=== PATIENT | female | born 1945 | race Caucasian/White ===

== ENCOUNTER 2024-03-13 14:16 | Outpatient (AMB) | payer OTHER, MEDICARE, SELFPAY ==
--- NOTE | 2024-03-13 14:17 | MHC.OFFVIS ---
Vital Signs 03/13/24 14:21 Height 5 ft 1 in Weight 95 lb BMI 17.9 BP 118/68 Blood Pressure Location Lt brachial Position Sitting Pulse 44 L Pulse Source Pulse Oximeter Pulse Oximetry (%) 100 Oxygen Delivery Method Room Air Intake Visit Reasons: Arthralgia Intake Note: Patient presents today for follow up on arthralgia. She was last seen on 07/31/[address] Mckinney at the [facility]. Allergies amoxicillin Allergy (Mild, Verified 03/13/24 10:07) Hives sulfamethoxazole [From Bactrim] Adverse Reaction (Intermediate, Verified 03/13/24 10:07) stomach pain trimethoprim [From Bactrim] Adverse Reaction (Intermediate, Verified 03/13/24 10:07) stomach pain nifedipine [From Procardia] Adverse Reaction (Mild, Verified 03/13/24 10:07) Headache lactose intolerant Adverse Reaction (Mild, Uncoded 03/13/24 10:07) Stomach Upset tegaderm tape Adverse Reaction (Mild, Uncoded 03/13/24 10:07) Rash HPI HPI Arthralgia: Details: Hx of esophageal dilitation by Dr. Aquino. At this time she does not have dysphagia. nefidipine caused ankle swelling. Raynaud's syndrome affecting hands and feet. Hands are cold. She has purple fingers when exposed to cold. Warming helps. Wears gloves in the cold. Denies spreading of skin tightening. Denies fevers, dyspnea, new rash, urinary symptoms. FORMERLY [facility], [facility] Medical History (Updated 03/17/24 @ 12:26 by Christian Mckinney MD) Varicose veins of both lower extremities Aortic regurgitation Aortic dilatation Diastolic dysfunction Right ventricular dilation Myasthenia gravis COPD (chronic obstructive pulmonary disease) Ocular myasthenia Lactose intolerance Osteopenia Veronica's disease Subclavian artery thrombosis DVT (deep venous thrombosis) History of colonic diverticulitis Primary biliary cirrhosis GERD (gastroesophageal reflux disease) Sclerodactyly Raynaud's phenomenon Inflammatory bowel disease Hypertension Surgical History (Updated 03/13/24 @ 11:17 by Eda Lares CMA) History of cataract surgery H/O total colectomy H/O total hysterectomy H/O basal cell carcinoma excision Review of Systems Const All systems reviewed & are unremarkable except as noted in HPI and below Physical Exam Vital Signs: Last Vital Signs Pulse 44 L 03/13/24 14:21 BP 118/68 03/13/24 14:21 Pulse Ox 100 03/13/24 14:21 Oxygen Delivery Method Room Air 03/13/24 14:21 BMI result Body Mass Index 17.9 Const Other: General: Comfortable CVS: RRR Respiratory: clear to auscultation bilaterally. Good respiratory effort Skin: Sclerodactyly present. No discoloration of fingertips. No digital ulcerations. MSK: [place]ber[place] nodes present. No tenderness of any joints. Good range of motion of upper extremities and lower extremities. Assessment & Plan Assessment & Plan (1) Systemic sclerosis with limited cutaneous involvement: Comment: Positive anticentromere antibody, URBAN, sclerodactyly, Raynaud's phenomena, possible history of strictures requiring dilatation from GI (unclear if esophageal dysmotility played a role in the past). Raynaud's syndrome is uncontrolled. Cutaneous disease is controlled without DMARD therapy. She was previously on a magnesium supplement. I will order magnesium level to determine if she remains deficient. Code(s): M34.9 - Systemic sclerosis, unspecified Category: Medical Plan: She will continue diltiazem 180 mg daily ER (previously on 360 mg daily ER, which was discontinued when she was on nifedipine). We discussed adding on sildenafil to better control Raynaud's syndrome as she did not tolerate nifedipine due to side effect of ankle edema. I will not start amlodipine for this reason. Sildenafil is indicated. If she gets control of Raynaud's syndrome on sildenafil, I will taper off diltiazem as it is not treatment of choice for managing Raynaud's syndrome. Baseline labs ordered including magnesium supplement Return to clinic 6 weeks (2) Hypomagnesemia: Code(s): E83.42 - Hypomagnesemia Category: Medical Plan: See above Orders: Orders Magnesium 03/13/24 E83.42 - Hypomagnesemia Complete Blood Count Auto Diff 03/13/24 I73.00 - Raynaud's syndrome without gangrene Creatinine 03/13/24 I73.00 - Raynaud's syndrome without gangrene Alanine Aminotransferase 03/13/24 I73.00 - Raynaud's syndrome without gangrene Aspartate Amino Transferase 03/13/24 I73.00 - Raynaud's syndrome without gangrene Medications: New sildenafil (pulm.hypertension) administer doses at least 4-6 hours apart. PA needed. Dispense this rx. Replace previous rx. 20 mg PO BID 60 tabs 11RF Coding Level of Care Code Est Pt Level 4 (84830) Complex EM visit Add On G2211 Diagnoses Systemic sclerosis with limited cutaneous involvement M34.9 Hypomagnesemia E83.42
[2024-03-13 14:21] VITALS: BP 118/68; PULSE 44; O2SAT 100; BMI 17.9
--- OUTSIDE RECORDS SUMMARY | 2024-03-13 18:04 | XMS_ITS | Patient Health Record ---
Author Organization [facility] Address [address] [place] [address] Care Team Providers Care Assistant Sales Center Manager Name Role Phone BERTRAND THOMAS DO Primary Care Provider Caitlyn Beatty Unavailable [phone] Allergies Allergen (clinical drug ingredient) Drug/Non Drug Allergy documented on EMR Reaction Allergy Type Onset Date Status amoxicillin AMOXICILLIN Itching Drug Allergy Act mark sulfamethoxazole / trimethoprim Bactrim DS Unknown Drug Allergy Active LACTOSE Unknown Drug Allergy Active PROCARDIA Intense Headaches Drug Allergy Active Tegaderm Unknown Allergy Active Reason For Referral No Information Medications Medication SIG (Take, Route, Frequency, Duration) Notes Start Date End Date Status Tobramycin-dexAMETHasone 0.3-0.1 % 1 drop into affected eye Ophthalmic as needed PRN Active Centrum Ultra Womens - Orally Active ProAir RespiClick 108 (90 Base) MCG/ACT 1 puff as needed Inhalation PRN Active Latanoprost 0.005 % 1 drop into affected eye in the evening Ophthalmic 3x a week Active Glucosamine Chond Cmp Advanced - 1 tablet Orally Twice a day Active Vitamin D3 1000 IU 1 ORAL twice daily for -3 10/26/2011 Active Estradiol 0.1 MG/GM 1 tablet Orally 2X A WEEK Active Vitamin B12 500MCG 1 ORAL daily for -3 12/09/2013 Active Omeprazole 20MG 1 ORAL Once a day 10/26/2011 Active dilTIAZem HCl ER Coated Beads 180 MG Oral for 90 Active Flonase Allergy Relief Not-Taking pyRIDostigmine Wynne ER 180 MG 2 tablet Orally Twice a day Active Myrbetriq 25 MG Oral for 30 Days Active Ursodiol 300MG 1 ORAL three times daily for -3 10/26/2011 Active Macrobid 100 MG 1 capsule with food Orally every 12 hrs for 7 days 04/10/2022 Active Levothyroxine Sodium 88 MCG 1 tablet in the morning on an empty stomach Orally Once a day 12/05/2012 Active Aspirin EC 81MG 1 ORAL daily for -3 12/09/2013 Active Losartan Potassium 50 MG 1 tablet Orally Twice a day Active Tylenol Arthritis Pain as needed Active Imodium A-D 2 MG 1 tablet as needed Orally PRN Active Meclizine HCl 25MG 1 ORAL NEEDED FOR VERTIGO for -2 PRN 12/05/2012 Active Social History Tobacco Use: Social History Observation Description Date Details (start date - stop date) Never Smoker NA - NA Tobacco Use/Smoking Question Answer Notes Are you a nonsmoker Alcohol Screen (Audit-C) Question Answer Notes Did you have a drink containing alcohol in the p ast year? No Points 0 Interpretation Negative Sexual History Question Answer Notes Had sex in the past 12 months (vaginal, oral, or anal)? No Section Notes: MARITAL STATUS: single CHILDREN: none OCCUPATION: retired NUTRITION: average diet EXERCISE: occasional walking SEXUAL ACTIVITY: not sexually active CONTRACEPTION: hysterectomy .CE: Smoking: Never a smoker .CE: ALCOHOL: none TEXT MESSAGING WHILE DRIVING: no SUNSCREEN: yes ILLICIT DRUGS: no SEATBEALT: yes Problems Problem Type SNOMED Code ICD Code Onset Dates Problem Status W/U Status Risk Notes Problem Postmenopausal atrophic vaginitis (63478608) Postmenopausal atrophic vaginitis (N95.2) Active confirmed Problem Urinary incontinence (249781822) Unspecified urinary incontinence (R32) Active confirmed Problem Cancer of skin of lower limb, basal cell (244547839) Basal cell carcinoma of skin of right lower limb, including hip (C44.712) Active confirmed Problem Basal cell carcinoma of skin (982445276) Basal cell carcinoma of skin, unspecified (C44.91) Active confirmed Problem Cholelithiasis without obstruction (38712639) Calculus of gallbladder without cholecystitis without obstruction (K80.20) Active confirmed Problem Functional urinary incontinence (235095393) Functional urinary incontinence (R39.81) Active confirmed Problem Hypothyroidism (83134769) Unspecified hypothyroidism (244.9) Active confirmed Major Problem Raynaud's disease (disorder) (023542230) Raynaud's syndrome (443.0) Active confirmed Diag Problem Benign essential hypertension (5830919) Essential hypertension, benign (401.1) Active confirmed Major Problem Esophageal reflux (516601643) Esophageal reflux (530.81) Active confirmed Major Problem Menopausal symptom (16534986) Symptomatic menopausal or female climacteric states (627.2) Active confirmed Major Problem Postmenopausal atrophic vaginitis (57395663) Postmenopausal atrophic vaginitis (627.3) Active confirmed Diag Problem Systemic sclerosis (74344083) Systemic sclerosis (710.1) Active confirmed Diag Problem Gynecological examination normal (782262078389211) Routine gynecological examination (V72.31) Active confirmed Major Problem Screening for malignant neoplasm of colon (358422810) Special screening for malignant neoplasms, colon (V76.51) Active confirmed Major Vital Signs Temperature 97.3 degrees Fahrenheit 07/06/2023 Blood pressure diastolic 58 mm Hg 07/06/2023 Height 60.5 in 07/06/2023 Blood pressure systolic 126 mm Hg 07/06/2023 Weight 100 lbs 07/06/2023 BMI 19.21 kg/m2 07/06/2023 Encounters Encounter Location Date Provider Diagnosis [facility] [address] [place] [address] 07/06/2023 Caitlyn Santana Encounter for gynecological examination (general) (routine) without abnormal findings Z01.419 ; Encounter for screening mammogram for malignant neoplasm of breast Z12.31 ; Unspecified urinary incontinence R32 and Postmenopausal atrophic vaginitis N95.2 [facility] [address] [place] [address] 07/17/2023 Caitlyn Santana Assessments Encounter Date Diagnosis (ICD Code) Assessment Notes Treatment Notes Treatment Clinical Notes Section Notes 07/06/2023 Encounter for gynecological examination (general) (routine) without abnormal findings (ICD-10 - Z01.419) NO MORE PAP TESTS. 07/06/2023 Encounter for screening mammogram for malignant neoplasm of breast (ICD-10 - Z12.31) REGULAR MAMMOGRAMS AND SBE'S. 07/06/2023 Unspecified urinary incontinence (ICD-10 - R32) CONTINUE CARE WITH DR BECERRA. GAVE HER DR MERINO'S ADDRESS AND PHONE NUMBER IF SHE WANTS [place] [facility] [place]/06/2023 Postmenopausal atrophic vaginitis (ICD-10 - N95.2) CONTINUE ESTRADIOL CREAM. RX'S ARE GIVEN BY DR BECERRA. Plan Of Treatment Pending Test Test Name Order Date MAMMOGRAM, SCREENING 11/24/2020 MAMMOGRAM, SCREENING 04/05/2022 MAMMOGRAM, SCREENING 07/06/2023 BONE DENSITY 04/05/2022 BONE DENSITY 09/12/2017 BONE DENSITY 09/19/2018 MM Digital Mammo Screening 09/26/2019 MM Digital Mammo Screening 11/24/2020 MM Digital Mammo Screening 07/06/2023 MM Digital Mammo Screening 04/05/2022 Next Appt Details Provider Name:Caitlyn cardoza, 07/10/2024 01:00:00 PM, [address], [address], [place], [address], Insurance Providers Payer Name Payer Address Payer Phone Subscriber Number Group Number Insured Name Patient Relationship to Insured Coverage Start Date Coverage End Date MEDICARE [address] [facility] [place], [place] [id number] MCKAY JONES Self - patient is the insured [facility] [employer] [address] [place], [place] [id number] [facility] MCKAY JONES Self - patient is the insured Medical (General) History Medical History History ICD Code Postmenopausal atrophic vaginitis N95.2 Raynaud's syndrome without gangrene I73. 00 Systemic sclerosis, unspecified M34.9 Gastro-esophageal reflux disease without esophagitis K21.9 Essential (primary) hypertension I10 Hypothyroidism, unspecified E03.9 Menopausal and female climacteric states N95.1 Disorder of Bowel Basal cell carcinoma of skin of right lo wer limb, including hip C44.712 Calculus of gallbladder without cholecys titis without obstruction K80.20 Functional urinary incontinence R39.81 Basal cell carcinoma of skin, unspecifie d C44.91 Other specified disorders of bone densit y and structure, multiple sites M85.89 Surgical History Surgery Date(Month/Year) Hysterectomy Ilieostomy Colectomy Tooth Exstraction Right Calf Basal Cell Removed Hospitalization History Reason Date(Month/Year) See Surgical Hx
--- OUTSIDE RECORDS SUMMARY | 2024-03-13 18:05 | XMS_ITS | Clinical Summary ---
Author Organization [facility] [address] [facility] [address] Address [address] [place] [address] Phone Care Team Providers Care Clinical Services Manager Name Role Phone Layne Martinez MD Primary Care Provider Allergies Active Allergy Reactions Criticality Noted Date Comments Adalat Headache 06/12/2013 Amoxicillin Itching,Rash Low 06/12/2013 Lactose Nausea And Vomiting Low 06/12/2013 Other Reaction(s): OTHER Lactose intolerant Other Itching 08/22/2023 Tegaderm Ag Mesh 2 x2 [Wound Dressings]Rash/[place] titis Sulfamethoxazole-Trime thoprim 08/26/2021 Other Reaction(s): Flushing, feeling of warmth Medications Medication Sig Dispensed Refills Start Date End Date Status meclizine (ANTIVERT) 25 mg tablet Take by mouth as needed. Active fluticasone propionate (FLONASE) 50 mcg/actuation nasal spray 2 Sprays by Each Nare route daily. Active saccharomyces boulardii (FLORASTOR) 250 mg capsule Take by mouth. Active losartan (COZAAR) 50 mg tablet Take 1 tablet (50 mg total) by mouth 2 (two) times a day. 10/24/2023 Active magnesium oxide (MAG-OX) 400 mg magnesium tablet Take by mouth. Acti ve cyanocobalamin (VITAMIN B-12) 1,000 mcg tablet Take 1 tablet (1,000 mcg total) by mouth 1 (one) time each day. Active omeprazole (PriLOSEC) [address] capsule Take 1 capsule (20 mg total) by mouth 1 (one) time each day. 07/02/2023 Active ursodioL (ACTIGALL) 300 mg capsule Take 1 capsule (300 mg total) by mouth 3 (three) times a day. 05/07/2023 Active mirabegron (MYRBETRIQ) 25 mg 24 hr tablet Take by mouth. Activ e estradioL (ESTRACE) 0.01 % (0.1 mg/gram) vaginal cream Place 1 g vaginally at bedtime. Active acetaminophen (TYLENOL 8 HOUR) 650 mg 8 hr tablet Take 650 mg by mouth every 8 hours as needed. Active ofloxacin (OCUFLOX) 0.3 % ophthalmic solution 1 Drop daily. Each eye 3 times a week Active latanoprost (XALATAN) 0.005 % ophthalmic solution 1 Drop at bedtime. each eye Active pyRIDostigmine (MESTINON) 180 mg CR tablet Take 360 mg by mouth 2 times daily. Take two tablet by mouth twice a day Active reservoir inhalation (INSPIREASE) device Use as directed 05/06/2015 Active cholecalciferol (VITAMIN D-3) 25 mcg (1,000 unit) capsule Take 2 Tabs by mouth daily. 06/20/2013 Active aspirin 81 mg EC tablet Take 1 tablet (81 mg total) by mouth 1 (one) time each day. Active UNABLE TO FIND Glucosamine-Cho ndroit-Vit C-Mn (GLUCOSAMINE CHONDR 1500 COMPLX OR), Take by mouth 2 times daily. Active MULTIVITAMIN ORAL Take by mouth 1 (one) time each day. Active levothyroxine (SYNTHROID, LEVOTHROID) 88 mcg tablet TAKE 1 TABLET BY MOUTH EVERY DAY 90 tablet 1 02/21/2024 Active dilTIAZem (CARDIZEM) 90 mg immediate release tablet TAKE 1 TABLET BY MOUTH EVERY DAY 90 tablet 02/22/2024 Active dilTIAZem (CARDIZEM) 90 mg immediate release tablet Take 1 tablet (90 mg total) by mouth 1 (one) time each day. 12/04/2023 02/22/2024 Discontinued levothyroxine (SYNTHROID, LEVOTHROID) 88 mcg tablet Take 1 tablet (88 mcg total) by mouth 1 (one) time each day. 07/16/2023 02/21/2024 Discontinued Active Problems Problem Noted Date Diagnosed Date Aortic regurgitation 03/17/2019 Overview (01/16/2024): Mild to moderate on echo 01/02/2019, normal EF Aortic dilatation 05/08/2016 Overview (01/16/2024): Mild on echo 12/29/15 Allergic rhinitis 11/09/2015 Overview (01/16/2024): Polyps, started flonase 10/2015 Adverse reaction to lisinopril 12/16/2013 Overview (01/16/2024): Cough. 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 Overview (01/16/2024): Remission since 1983 Cholelithiasis 06/12/2013 Overview (01/16/2024): Seen on cat scan 2012 Hiatal hernia with gastroesophageal reflux 06/12 Overview (01/16/2024): Multiple endoscopies with dilatation per pt, no Barett's, Hypertension 06/12/2013 Hypothyroidism 06/12/2013 Overview (01/16/2024): 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 Hollins Echo 12/28/15 with normal EF, mild diastolic dysfunction, right ventricle mildly dilated, ascending aorta mildly dilated Surgical menopause 06/12/2013 Overview (01/16/2024): Age 34, on oral hormones until age 55, now vagifem, Dr Buitrago, . 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, sees Dr Hernandez Immunizations Name Administration Dates Next Due Influenza trivalent, 0.5mL ( Fluad) 65yo and older 10/23/2023,11/02/2022,11/16/2020,11/14,11/19/2018,11/01/2017,11/06/2016 ,11/05/2014 Influenza trivalent, 0.5mL, preservative free (Fluarix; FluLaval; Fluzone) ages 6mo and older (Afluria) 3 years and older 11/11/2015,12/09/2013 Influenza trivalent, with pr eservative (Fluzone; Afluria) 6mo and older 12/14/2011,02/16/2011,12/16/2009 Influenza, Unspecified 02/23/2022,2007,12/14/2005,11/29 Moderna SARS-CoV-2 COVID-19, mRNA, LNP-S, preservative free 08/12/2021,01/26/2021 Pneumococcal conjugate 13 va lent (Prevnar 13, PCV13) 2mo and older 07/01/2014 Pneumococcal polysaccharide 23 valent (Pneumovax 23) 2yo and older 08/10/2010 Pneumococcal, Unspecified 08/08/2010 Td Tetanus diptheria (Tdvax) 7yo and older 08/18/2010,02/12/1997 Tdap Tetanus diptheria acell ular pertussis (Boostrix; Adacel) 7yo and older 12/04/2016 Surgical History Surgery Date Site/Laterality Comments OTHER SURGICAL HISTORY 1993 PROCEDURE: HISTORY OTHER; COMMENT: total colectomy, age 48 HYSTERECTOMY 01/1980 PROCEDURE: HISTORICAL TOTAL HYSTERECTOMY WITH BSO; COMMENT: fibroids, OTHER SURGICAL HISTORY PROCEDURE: HISTORY OTHER; COMMENT: partial colectomy OTHER SURGICAL HISTORY 2000, 06/30/2011 PROCEDURE: HISTORY OTHER; COMMENT: varicose vein UPPER GASTROINTESTINAL ENDOSCOPY PROCEDURE: RI UPPER GI ENDOSCOPY PERFORMED; COMMENT: historic , multiple with dilitation, neg barretts APPENDECTOMY PROCEDURE: RI APPENDECTOMY HYSTERECTOMY PROCEDURE: HISTORICAL HYSTERECTOMY COLONOSCOPY PROCEDURE: HISTORICAL COLONOSCOPY Family History Medical History Relation Name Comments Heart attack Brother 1 Glaucoma Father Other: kidney disease Father Stroke Mother Coronary artery disease Sister 1 aneu rysm Other: brain tumors Sister 2 Relation Name Status Comments Brother 1 Brother 2 Alive Father (Age 79) heart fail ure Mother (Age 83) Sister 1 Sister 2 Sister 3 Alive Social History Tobacco Use Types Packs/Day Years Used Date Smoking Tobacco: Never Smokeless Tobacco: Never Alcohol Use Standard Drinks/Week Comments Never 0 (1 standard drink = 0.6 oz pur e alcohol) Sex and Gender Information Value Date Recorded Sex Assigned at Not on file Gender Identity Not on file Sexual Orientation Not on file Obstetrics History Last Filed Vital Signs Vital Sign Reading Time Taken Comments Blood Pressure 138/57 12/04/2023 11:10 AM EDT Pulse 73 12/04/2023 11:10 AM EDT Temperature - - Respiratory Rate - - Oxygen Saturation - - Inhaled Oxygen Concentration - - Weight 44.4 kg (97 lb 12.8 oz) 12/04/2023 11:10 AM EDT Height 154.9 cm (5' 1 ) 12/04/2023 11:10 AM EDT Body Mass Index 18.48 12/04/2023 11:10 AM EDT Plan of Treatment Upcoming Encounters Date Type Department Care Team (Late st Contact Info) Description 04/01/2024 1:00 PM EST Office Visit Adult Medicine [address] [address] Layne Martinez MD [address] [facility] [address] 06/06/2024 1:00 PM EDT Office Visit Pulmonolgy - [place] [address] [place] [phone] Riccardo Garay MD [address] [facility] [address] [place] [address] Health Maintenance Due Date Last Done Comments Hepatitis A Vaccines (1 of 2 - Risk 2-dose series) 11/11/1962 Zoster Vaccines (1 of 2) 11/11/1993 Hepatitis B Vaccines (1 of 3 - Risk 3-dose series) 2003 RSV Immunization Patients 60+ Years Old (1 - 1-dose 75+ series) 11/11/2018 Depression Screening 01/21/2022 Falls Risk Assessment 01/21/2022 Medicare Annual Wellness Visit 01/21/2022 Osteoporosis Screening (Bone Density Screening) 01/21/2022 Social Influencers of Health Screening 01/21/2022 Hypertension/CHF/CAD Annual BMP Blood Test 2024 11/13/2023, 11/13/2023 DTaP,Tdap,and Td Vaccines (4 - Td or Tdap) 12/04/2026 12/04/2016, 08/18/2010, 02/12/1997 Cholesterol Screening (Lipid Panel) 05/02/2028 05/03/2023 Pneumococcal Vaccine: 65+ Years Completed 07/01/2014, 08/10/2010, 08/08/2010 Influenza Vaccine Completed 10/23/2023, , 02/23/2022, Additional history exists COVID-19 Vaccine Completed 12/28/2023, , 01/09/2022, Additional history exists HIB Vaccines Aged Out No longer eligi ble based on patient's age to complete this topic HPV Vaccines Aged Out No longer eligi ble based on patient's age to complete this topic IPV Vaccines Aged Out No longer eligi ble based on patient's age to complete this topic MMR Vaccines Aged Out No longer eligi ble based on patient's age to complete this topic Meningococcal ACWY Vaccine Aged Out N o longer eligible based on patient's age to complete this topic RSV Immunization Patients Under 20 months Aged Out No longer eligible based on patient's age to complete this topic Varicella Vaccines Aged Out No longer eligible based on patient's age to complete this topic Procedures Procedure Name Priority Date/Time Associated Diagnosis Comments ANNUAL BMP BLOOD TEST Routine 11/13/2023 LIPID PANEL Routine 05/03/2023 from Last 3 Months or Most Recently Relevant to Health Maintenance Results * Annual BMP Blood Test (11/13/2023) Annual BMP Blood Test abstracted Historical Provider MD MIN MARIANO E * (ABNORMAL) Lipid panel (05/03/2023) LDL/HDL Ratio 3 0 - 4 Triglycerides 187(A) 0 - 150 mg/dL Cholesterol 143 0 - 200 mg/dL HDL 55 40 mg/dL LDL Cholesterol 51 0 - 100 mg/dL Blood Venous blood specimen / Unknown Historical Provider LAB BLOOD ORDERAB LES from Last 3 Months or Most Recently Relevant to Health Maintenance Care Teams Clinical Services Manager Relationship Specialty Start Date End Date Layne Martinez MD PCP - General 08/17/23
--- OUTSIDE RECORDS SUMMARY | 2024-03-13 18:05 | XMS_ITS | Patient Health Record ---
Author Organization [facility] Address [address] [place] [address] Care Team Providers Care Sports Management Intern Name Role Phone Teodoro Ventura Primary Care Provider Khris Steel Unavailable [phone] Allergies Allergen (clinical drug ingredient) Drug/Non Drug Allergy documented on EMR Reaction Allergy Type Onset Date Status sulfamethoxazole / trimethoprim Bactrim Unknown Drug Allergy Active Lactose Unknown Drug Allergy Active Procardia debilitating headache Drug Allergy Active Adhesive Unknown Allergy Active amoxicillin Amoxicillin itching Drug Allergy Act mark Tegaderm itching Allergy Active Reason For Referral No Information Medications Medication SIG (Take, Route, Frequency, Duration) Notes Start Date End Date Status Losartan Potassium 50 MG TAKE 1 TABLET B Y MOUTH TWICE A DAY Oral for 90 Active Vitamin D3 Active Meclizine HCl prn Active Multivitamin centrum Active Omeprazole 20 MG Oral for 90 A ctive Glucosamine Active Spiriva HandiHaler N ot-Taking Imodium A-D prn Active Tobramycin prn Active Latanoprost 0.005 % Ophthalmic for 90 Active Ursodiol 300 MG TAKE 1 CAPSULE BY MOUTH THREE TIMES A DAY Oral for 90 Active Levothyroxine Sodium 88 MCG TAKE 1 TABLET BY MOUTH EVERY DAY Oral for 90 Active Vitamin B12 Active pyRIDostigmine [place] ER 180 MG Oral for 90 Active ProAir RespiClick prn Ac tive dilTIAZem HCl ER Coated Beads 180 MG TAKE 1 CAPSULE BY MOUTH EVERY DAY Oral for 90 Active Probiotic prn Active Fluticasone Propionate 50 MCG/ACT Nasal for 90 Active Social History Tobacco Use: Social History Observation Description Date Details (start date - stop date) Never Smoker NA - NA Tobacco Use/Smoking Question Answer Notes Are you a: nonsmoker Additional Findings: Tobacco Non-User Current no n-smoker Alcohol Screen Question Answer Notes Did you have a drink containing alcohol in the p ast year? No Points 0 Interpretation Negative Tobacco use other than smoking: Question Answer Notes Are you an other tobacco user? No Problems Problem Type SNOMED Code ICD Code Onset Dates Problem Status W/U Status Risk Notes Problem Acquired hallux valgus (16789298) Hallux valgus (acquired), left foot (M20.12) Active confirmed Problem Acquired hallux valgus (40696792) Hallux valgus (acquired), right foot (M20.11) Active confirmed Plan Of Treatment Pending Test Test Name Order Date X ray : Foot, left 3V 09/14/2021 X ray : Foot, right 3V 09/14/2021 Insurance Providers Payer Name Payer Address Payer Phone Subscriber Number Group Number Insured Name Patient Relationship to Insured Coverage Start Date Coverage End Date Medicare National Govt Sv[employer] [address] [place] [address] [id number] Angela Zuleta Self - patient is the insured [employer]) [address] [place] [address] [phone] [id number] Angela Zuleta Self - patient is the insured Medical (General) History Medical History History ICD Code Arthritis Blind loop syndrome Cataracts Chron's/ Colitis COPD Deep vein thrombosis Diverticulosis Gallstones Glaucoma High blood pressure Insomnia Lactose intolerance Lung disease Ocular myasthenia Osteoporosis Poor circulation raynauds disease Reflux ( GERD) Scleroderma Shingles thyroid, Veronica's Vascular phlebitis (clots) Vericose Veins Subclavian thrombosis Surgical History Surgery Date(Month/Year) hysterectomy 01/1980 large intestines 12/1993 bowel resection 09/1994 varicose vein stripping 2011 cataract surgery 09/2015, 10/2015 basal cell removal 10/2020
--- OUTSIDE RECORDS SUMMARY | 2024-03-13 18:05 | XMS_ITS ---
Author Organization [email or web address] Address [address] [place] [address] Care Team Providers Care Nurse Transitional Name Role Phone BERTRAND THOMAS DO Primary Care Provider Caitlyn Beatty Unavailable [phone] REASON FOR VISIT HR MEDICARE PE Encounters Encounter Location Date Provider Diagnosis [email or web address] [address] [place] [address] 05/24/2023 Caitlyn Santana Plan Of Treatment Next Appt Details Provider Name:Caitlyn cardoza, 07/10/2024 01:00:00 PM, [address], [address], [place], [address], Progress Notes * MCKAY JONESDOB:1945 (78 yo F)Acc No.[id number]:05/24/2023 PROGRESS NOTES Patient:?MCKAY JONES Appointment Provider:?Caitlyn cardoza M.D. :1945???Age:77 Y???Sex:Female D ate:05/24/2023 Address: [address], , [place] Pcp:BERTRAND THOMAS DO Subjective: * Chief Complaints: * ???1. HR MEDICARE PE. * Medical History:? Objective: * Vitals:? Assessment: Plan: * Treatment: * Images: Billing Information: * Visit Code:? * Procedure Codes:? * Electronic signature of Markus Santana MD on 03/13/2024 at 06:04 PM EST Sign off status: Pending * Appointment Provider:?Caitlyn Santana M.D. Date:?05/24/2023 Generated for Alpa porras/Kristen/Sharon on:?03/13/2024 06:04 PM EST
--- OUTSIDE RECORDS SUMMARY | 2024-03-13 18:05 | XMS_ITS ---
Author Organization [facility] Address [address] [place] [address] Care Team Providers Care Pest Technician Name Role Phone BERTRAND THOMAS DO Primary Care Provider Caitlyn Beatty Unavailable [phone] Allergies Allergen (clinical drug ingredient) Drug/Non Drug Allergy documented on EMR Reaction Allergy Type Onset Date Status amoxicillin AMOXICILLIN Itching Drug Allergy Act mark sulfamethoxazole / trimethoprim Bactrim DS Unknown Drug Allergy Active LACTOSE Unknown Drug Allergy Active PROCARDIA Intense Headaches Drug Allergy Active Tegaderm Unknown Allergy Active REASON FOR VISIT HR MEDICARE PE, 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+ Medications Medication SIG (Take, Route, Frequency, Duration) Notes Start Date End Date Status Flonase Allergy Relief Not-Taking Myrbetriq 25 MG Oral for 30 Days Active Centrum Ultra Womens - Orally Active Macrobid 100 MG 1 capsule with food Orally every 12 hrs for 7 days 04/10/2022 Active Aspirin EC 81MG 1 ORAL daily for -3 12/09/2013 Active Tylenol Arthritis Pain as needed Active Meclizine HCl 25MG 1 ORAL NEEDED FOR VERTIGO for -2 PRN 12/05/2012 Active Latanoprost 0.005 % 1 drop into affected eye in the evening Ophthalmic 3x a week Active Vitamin D3 1000 IU 1 ORAL twice daily for -3 10/26/2011 Active Vitamin B12 500MCG 1 ORAL daily for -3 12/09/2013 Active Omeprazole 20MG 1 ORAL Once a day 10/26/2011 Active dilTIAZem HCl ER Coated Beads 180 MG Oral for 90 Active pyRIDostigmine [place] ER 180 MG 2 tablet Orally Twice a day Active Ursodiol 300MG 1 ORAL three times daily for -3 10/26/2011 Active Levothyroxine Sodium 88 MCG 1 tablet in the morning on an empty stomach Orally Once a day 12/05/2012 Active Losartan Potassium 50 MG 1 tablet Orally Twice a day Active Imodium A-D 2 MG 1 tablet as needed Orally PRN Active Tobramycin-dexAMETHasone 0.3-0.1 % 1 drop into affected eye Ophthalmic as needed PRN Active ProAir RespiClick 108 (90 Base) MCG/ACT 1 puff as needed Inhalation PRN Active Glucosamine Chond Cmp Advanced - 1 tablet Orally Twice a day Active Estradiol 0.1 MG/GM 1 tablet Orally 2X A WEEK Active Social History Tobacco Use: Social History [...] 12 months (vaginal, oral, or anal)? No Vital Signs Temperature 97.3 degrees Fahrenheit 07/06/19 Blood pressure systolic 126 mm Hg 07/06/19 24 Blood pressure diastolic 58 mm Hg 024 Height 60.5 in 07/06/2023 Weight 100 lbs 07/06/2023 BMI 19.21 kg/m2 07/06/2023 Encounters Encounter Location Date Provider Diagnosis [address] [address] 07/06/2023 Caitlyn Santana Encounter for gynecological examination (general) (routine) without abnormal findings Z01.419 ; Encounter for screening mammogram for malignant neoplasm of breast Z12.31 ; Unspecified urinary incontinence R32 and Postmenopausal atrophic vaginitis N95.2 Assessments Encounter Date Diagnosis (ICD Code) Assessment [...] IF SHE WANTS [place] [facility] [place] Postmenopausal atrophic vaginitis (ICD-10 - N95.2) CONTINUE ESTRADIOL CREAM. RX'S ARE GIVEN BY DR BECERRA. Plan Of Treatment Treatment Notes Assessment Notes Encounter for gynecological examination (general) (routine) without abnormal findings NO MORE PAP TESTS. Encounter for screening mamm ogram for malignant neoplasm of breast REGULAR MAMMOGRAMS AND SBE'S. Unspecified urinary incontinence CONTINUE CARE WITH DR BECERRA. GAVE HER DR MERINO'S ADDRESS AND PHONE NUMBER IF SHE WANTS TO [place] [facility] [place] Postmenopausal atrophic vaginitis CONTINUE ESTRADIOL CREAM. RX'S ARE GIVEN BY DR BECERRA. Pending Test Test Name Order Date MAMMOGRAM, SCREENING 07/06/2023 MM Digital Mammo Screening 07/06/2023 Next Appt Details Follow Up: 1 Year, Reason: Provider Name:Caitlyn cardoza, 07/10/2024 01:00:00 PM, [address] [facility], [address], [place], [address], Progress Notes * MCKAY JONESDOB:1945 (77 yo F)Acc No.[id number]:07/06/2023 PROGRESS NOTES Patient:?MCKAY JONES Appointment Provider:?Caitlyn cardoza M.D. 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 S/P TAHBSO IN 1977 FOR BLEEDING FROM FIBROIDS. S/P COLECTOMY FOR ISCHEMIC BOWEL DISEASE IN 1993.? SHE WAS SEEING DR EWING. SHE HAD C/O FREQUENT UTI'S, URINARY RETENTION AND INCONTINENCE? AND HAS BEEN SEEING? DR BECERRA.? SHE HAD CYSTOSCOPY DONE WITH NORMAL FINDINGS, AND A CT SCAN THAT SHOWED KIDNEY STONES. SHE IS PRESENTLY ON MYRBETRIQ BUT CONTINUES TO HAVE FREQUENT URINATIONS.? SHE ALSO USES ESTRADIOL CREAM.? SHE SEES MOSTLY DR BECERRA'S PA AND NOW WANTS TO BE REFERRED TO A UROGYNECOLOGIST. HER LAST MAMMOGRAM DONE IN JUNE 2023 SHOWED BREASTS ARE NOT DENSE AND WAS NORMAL. HER LAST PAP TEST IN 2010 WAS NEGATIVE.? SHE HAS NO HX OF ABNORMAL PAP TESTS. HER LAST BMD IN 2023 SHOWED THE LOWEST T-SCORE TO BE -1.7 AT THE HIP.? FRAX=12%/3%.? THERE WAS NO SIGNIFICANT CHANGE COMPARED TO HER BMD IN 2019. MODERNA X 4. ???Annual:? Patient presents for annual exam, ages 60-85, postmenopausal. ?General Health Maintenance:?Current breast complaints:?no breast pain, mass, discharge, or skin changes ?Urinary problems:?patient reports no urinary health problems or bowel health problems ?Calcium intake:?takes adequate calcium via diet and supplementation ?Significant REWORK OPERATOR problems:?no significant kings[place] machine operator symptoms or problems * ROS:?general:?no?chest pain.?no?palpitations.?no?headache.?no?cough.?no?shortness of breath.?no?fever.?no?unexplained weight loss.?no?nausea/vomiting.?no?change in bowel movements.?no blood in stool.?no?genitourinary complaints.?no?skin complaints.? * Medical History:? * Knocker Out History:?/ Para?0/0.?Sexual activity?not currently sexually active.?Last Pap Smear:?09/14/2010, neg.?Mammogram:?06/14/23 < 50% density, 03/15/22 < 50% density, 01/20/21 < 50% density, 11/06/19 < 50% density, 07/18/2018 < 50% density, 05/2017 normal, 03/10/16 < 50% density, 01/2015 , normal, < 50% density.?LMP and menses?Hyst.?Hysterectomy:?Yes, CORTEZ/BSO.?Colonoscopy?Never had one Large Intestine removed 1993.?Bone Density:?06/14/23, 11/06/19, 07/06/16, 01/2014.? * OB History:?Total pregnancies?0.? * Surgical History:?Hysterecto my Ilieostomy Colectomy Tooth Exstraction Right Calf Basal Cell Removed * Hospitalization/Major Diagno stic Procedure:?See Surgical Hx * Family History:?Mother: dece ased 83 yrs.?Father: 79 yrs, coronary artery disease.? Sister: Kidney Stones. * Social History:?Tobacco Use:?Tobacco Use/Smoking?Are you a?nonsmoker ???Sexual History:?Sexual History?Had sex in the past 12 months (vaginal, oral, or anal)??No ?Details of Sexual History?Are you sexually active??No ???Drugs/Alcohol:?Drugs?Have you used drugs other than those for medical reasons in the past 12 months??No ?Alcohol Screen (Audit-C)?Did you have a drink containing alcohol in the past year??No ?Points?0 ?Interpretation?Negative ???Miscellaneous:?Children: no. ?Exercise: yes, occ walking. ?Home smoke detector use: yes. ?Marital status: single. ?Natural support system: yes. ?Occupation: Retired. ?Sexually active: no. * Medications:?TakingEstradiol 0.1 MG/GM Cream 1 tablet Orally 2X A WEEK Glucosamine Chond Cmp Advanced - Tablet 1 tablet Orally Twice a day ProAir RespiClick 108 (90 Base) MCG/ACT Aerosol Powder Breath Activated 1 puff as needed Inhalation , Notes to Pharmacist: PRNTobramycin-dexAMETHasone 0.3-0.1 % Suspension 1 drop into affected eye Ophthalmic as needed , Notes to Pharmacist: PRNImodium A-D 2 MG Tablet 1 tablet as needed Orally , Notes to Pharmacist: PRNLosartan Potassium 50 MG Tablet 1 tablet Orally Twice a day Levothyroxine Sodium 88 MCG Tablet 1 tablet in the morning on an empty stomach Orally Once a day Ursodiol 300MG 1 ORAL three times daily pyRIDostigmine [place] ER 180 MG Tablet Extended Release 2 tablet Orally Twice a day dilTIAZem HCl ER Coated Beads 180 MG Capsule Extended Release 24 Hour Oral Omeprazole 20MG 60 1 ORAL Once a day Vitamin B12 500MCG 1 ORAL daily Vitamin D3 1000 IU 30 1 ORAL twice daily Latanoprost 0.005 % Solution 1 drop into affected eye in the evening Ophthalmic 3x a week Centrum Ultra Womens - Tablet Orally Meclizine HCl 25MG 1 ORAL NEEDED FOR VERTIGO , Notes to Pharmacist: PRNTylenol Arthritis Pain , Notes to Pharmacist: as neededAspirin EC 81MG 30 1 ORAL daily Macrobid 100 MG Capsule 1 capsule with food Orally every 12 hrs Myrbetriq 25 MG Tablet Extended Release 24 Hour Oral Taking Estradiol 0.1 MG/GM Cream 1 tablet Orally 2X A WEEK Taking Glucosamine Chond Cmp Advanced - Tablet 1 tablet Orally Twice a day Taking ProAir RespiClick 108 (90 Base) MCG/ACT Aerosol Powder Breath Activated 1 puff as needed Inhalation , Notes to Pharmacist: PRNTaking Tobramycin-dexAMETHasone 0.3-0.1 % Suspension 1 drop into affected eye Ophthalmic as needed , Notes to Pharmacist: PRNTaking Imodium A-D 2 MG Tablet 1 tablet as needed Orally , Notes to Pharmacist: PRNTaking Losartan Potassium 50 MG Tablet 1 tablet Orally Twice a day Taking Levothyroxine Sodium 88 MCG Tablet 1 tablet in the morning on an empty stomach Orally Once a day Taking Ursodiol 300MG 1 ORAL three times daily Taking pyRIDostigmine [place] ER 180 MG Tablet Extended Release 2 tablet Orally Twice a day Taking dilTIAZem HCl ER Coated Beads 180 MG Capsule Extended Release 24 Hour Oral Taking Omeprazole 20MG 60 1 ORAL Once a day Taking Vitamin B12 500MCG 1 ORAL daily Taking Vitamin D3 1000 IU 30 1 ORAL twice daily Taking Latanoprost 0.005 % Solution 1 drop into affected eye in the evening Ophthalmic 3x a week Taking Centrum Ultra Womens - Tablet Orally Taking Meclizine HCl 25MG 1 ORAL NEEDED FOR VERTIGO , Notes to Pharmacist: PRNTaking Tylenol Arthritis Pain , Notes to Pharmacist: as neededTaking Aspirin EC 81MG 30 1 ORAL daily Taking Macrobid 100 MG Capsule 1 capsule with food Orally every 12 hrs Taking Myrbetriq 25 MG Tablet Extended Release 24 Hour Oral Not-TakingFlonase Allergy Relief Not- Taking Flonase Allergy Relief DiscontinuedSpiriva HandiHaler 18 MCG Capsule 1 capsule by inhaling the contents of the capsule using the HandiHaler device Inhalation Once a day Probiotic - Tablet Delayed Release as directed Orally Gemtesa 75 MG Tablet 1 tablet Orally Once a day Medication List reviewed and reconciled with the patientDiscontinued Spiriva HandiHaler 18 MCG Capsule 1 capsule by inhaling the contents of the capsule using the HandiHaler device Inhalation Once a day Discontinued Probiotic - Tablet Delayed Release as directed Orally Discontinued Gemtesa 75 MG Tablet 1 tablet Orally Once a day Medication List reviewed and reconciled with the patient * Allergies:?AMOXICILLIN: Itch ing - AllergyLACTOSE: AllergyPROCARDIA: Intense Headaches - AllergyTegaderm: AllergyBactrim DS: Allergyno[Allergies Verified] Objective: * Vitals:?Ht: 60.5 in, Wt: 100 lbs, BMI:19.21Index, BP: 126/58 mm Hg, Temp: 97.3 F. * Examination: ???General Exam: ?CONSTITUTIONAL:?NECK/THYROID:?RESPIRATORY:?Auscultation: clear to auscultation bilaterally, Respiratory Effort: normal.?CARDIOVASCULAR:?Auscultation: regular rate and rhythm.?BREAST, Right:?BREAST, Left:?GASTROINTESTINAL:?MUSCULOSKELETAL:?SKIN:?NEURO/PSYCH:?Genitourinary: ?EXTERNAL GENITALIA:?VAGINA:?BLADDER:?URETHRA:?CERVIX:?UTERUS:?ADNEXA:?ANUS AND PERINEUM:? Assessment: * Assessment: 1.?Encounter for gynecologic al examination (general) (routine) without abnormal findings - Z01.419?2.?Encounter for screening mammogram for malignant neoplasm of breast - Z12.31?3.?Unspecified urinary incontinence - R32?4.?Postmenopausal atrophic vaginitis - N95.2? Plan: * Treatment: 2.?Encounter for screening m ammogram for malignant neoplasm of breast?Imaging: MM Digital Mammo Screening Notes: REGULAR MAMMOGRAMS AND SBE'S.?? 3.?Unspecified urinary incon tinence? Notes: CONTINUE CARE WITH DR BECERRA. GAVE HER DR MERINO'S ADDRESS AND PHONE NUMBER IF SHE WANTS TO [place] [facility] [place]?? 4.?Postmenopausal atrophic v aginitis? Notes: CONTINUE ESTRADIOL CREAM. RX'S ARE GIVEN BY DR BECERRA.?? * Imaging:? * ?Imaging: MAMMOGRAM, SCR EENING * Procedure Codes:? * Preventive Medicine:? ??YOUR PREVENTIVE WELLNESS PLAN:?Osteoporosis prevention?Calcium, D, strength training.?Breast Cancer Screening (Mammogram):?annually.?Cervical Cancer Screening (Pap Smear):?q 3 years with HPV screen.?Colorectal Cancer Screening:?q 10 years.? * Follow Up:?1 Year * Images: Billing Information: * Visit Code:? [id number] Preventive Care Est Pt. Age 65 and over. * Procedure Codes:? * Sign off status: Completed true * Appointment Provider:?Caitlyn Santana M.D. Date:?07/06/2023 Generated for Alpa porras/Kristen/eTcaitsmitting on:?03/13/2024 06:05 PM EST History and Physical Notes * HPI (History of Present Illness) Category Sub-Category Detail Notes Category Not es New/Follow-up Patient Consult S/P TAHBSO IN 1977 FOR BLEEDING FROM FIBROIDS. S/P COLECTOMY FOR ISCHEMIC BOWEL DISEASE IN 1993. SHE WAS SEEING DR EWING. SHE HAD C/O FREQUENT UTI'S, URINARY RETENTION AND INCONTINENCE AND HAS BEEN SEEING DR BECERRA. SHE HAD CYSTOSCOPY DONE WITH NORMAL FINDINGS, AND A CT SCAN THAT SHOWED KIDNEY STONES. SHE IS PRESENTLY ON MYRBETRIQ BUT CONTINUES TO HAVE FREQUENT URINATIONS. SHE ALSO USES ESTRADIOL CREAM. SHE SEES MOSTLY DR BECERRA'S PA AND NOW WANTS TO BE REFERRED TO A UROGYNECOLOGIST. HER LAST MAMMOGRAM DONE IN JUNE 2023 SHOWED BREASTS ARE NOT DENSE AND WAS NORMAL. HER LAST PAP TEST IN 2010 WAS NEGATIVE. SHE HAS NO HX OF ABNORMAL PAP TESTS. HER LAST BMD IN 2023 SHOWED THE LOWEST T-SCORE TO BE -1.7 AT THE HIP. FRAX=12%/3%. THERE WAS NO SIGNIFICANT CHANGE COMPARED TO HER BMD IN 2019. MODERNA X 4. 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[place] machine operator symptoms or problems Examination Category Sub-Category Detail Notes Category Not es General Exam CONSTITUTIONAL: General Appearan ce:: alert, in no acute distress, normal, well nourished NECK/THYROID: Thyroid:: normal size and shape Inspection/Palpation:: normal RESPIRATORY: Auscultation: clear to auscultation bilaterally, Respiratory Effort: normal CARDIOVASCULAR: Auscultation: regula r rate and rhythm GASTROINTESTINAL: Hernias:: no hernias present, no inguinal adenopathy Liver and Spleen:: normal Abdomen:: no masses, nontender, nondiste nded MUSCULOSKELETAL: Inspection/Palpation:: no clubb ing, cyanosis, or edema SKIN: Skin:: normal NEURO/PSYCH: Mood/Affect:: normal Orientation:: time , place, person BREAST, Right: Inspection/Palpation :: no discharge, no masses present, no nipple retraction, no skin changes, no skin dimpling, no tenderness, no lymphadenopathy, no axillary mass, no axillary tenderness BREAST, Left: Inspection/Palpation :: no discharge, no masses present, no nipple retraction, no skin changes, no skin dimpling, no tenderness, no lymphadenopathy, no axillary mass, no axillary tenderness Genitourinary EXTERNAL GENITALIA: External Genitalia:: nor mal, no lesions VAGINA: Vagina:: normal appearance, no a bnormal discharge, no lesions BLADDER: Bladder:: no mass, nontender URETHRA: Urethra:: no erythema or lesions present CERVIX: Cervix:: surgically absent UTERUS: Uterus:: surgically absent ADNEXA: Adnexa:: surgically absent ANUS AND PERINEUM: Anus/Perineum:: visually norm al
--- OUTSIDE RECORDS SUMMARY | 2024-03-13 18:05 | XMS_ITS ---
Author Organization [facility] Address [address] [place] [address] Care Team Providers Care Intellectual Property Legal Assistant Name Role Phone BERTRAND THOMAS DO Primary Care Provider Caitlyn Betaty [phone] REASON FOR VISIT REFER TO DR PAREKH Encounters Encounter Location Date Provider Diagnosis [facility] [place] [address] [place] [address] 07/17/2023 Caitlyn Santana Plan Of Treatment Next Appt Details Provider Name:Caitlyn cardoza, 07/10/2024 01:00:00 PM, [address] [facility] [facility], [address], [place], [address], Progress Notes * MCKAY JONESDOB:1945 (77 yo F)Acc No.[id number]:07/17/2023 Patient:?MCKAY JONES :1945???Age:77 Y???Sex:Female Address:[address], , [place], [address] * true * Date:? Generated for Printi vern/Faesmeg/eTransmitting on:?03/13/2024 06:05 PM EST
== END 2024-03-13 15:09 | disposition home or self-care (01) ==
PROVIDERS: Visit Provider Internal Medicine Rheumatology
DX: M34.9 Systemic sclerosis, unspecified (principal); E83.42 Hypomagnesemia
CPT/HCPCS: 99214

== ENCOUNTER 2024-03-13 14:16 | Outpatient (REF) | payer OTHER, MEDICARE, SELFPAY ==
[2024-03-13 17:38] LABS: MANUAL DIFF FLAG NO
[2024-03-13 17:49] LABS: Basophils Percent Auto 0.4 % (0-2); Eosinophils Absolute Auto 0.3 X10*3/uL (0.0-0.4); Eosinophils Percent Auto 3.2 % (0-4); Hemoglobin 11.3 g/dl (12.0-16.0); Imm Gran Abs Auto 0.03 X10*3/uL (0.00-0.03); Imm Gran Pct Auto 0.3 % (0.0-0.4); Lymphocytes Absolute Auto 2.8 X10*3/uL (1.2-4.9); Lymphocytes Percent Auto 31.4 % (20-40); Mean Corpuscular HGB Conc 32.3 g/dl (31.0-35.0); Mean Corpuscular Hemoglobin 28.9 pg (27.0-33.0); Mean Corpuscular Volume 89.5 fL (80.0-98.0); Mean Platelet Volume 11.1 fL (9.4-12.3); Monocytes Percent Auto 11.4 % (2-11); Neutrophils Absolute Auto 4.8 x10*3/uL (2.0-8.3); Neutrophils Percent Auto 53.3 % (45-73); Platelet Count 326 X10*3/uL (160-400); Red Blood Count 3.91 X10*6/uL (4.20-5.50); Red Cell Distribution Width 13.9 % (11.0-16.0); White Blood Count 9.1 X10*3/uL (4.8-10.8)
[2024-03-13 17:54] LABS: Alanine Aminotransferase 10 U/L (0-31); Aspartate Amino Transferase 21 U/L (5-31); Estimated Glomerular Filt Rate 34; Magnesium 1.8 mg/dL (1.6-2.6)
--- OUTSIDE RECORDS SUMMARY | 2024-03-13 19:03 | XMS_ITS | Clinical Summary ---
Author Organization [facility] [address] [facility] Address [address] [facility] [address] [place] [address] Phone Care Team Providers Care Director Television News Name Role Phone Layne Martinez MD Primary Care Provider Allergies Active Allergy Reactions Criticality Noted Date Comments Adalat Headache 06/12/2013 Amoxicillin Itching,Rash Low 06/12/2013 Lactose Nausea And Vomiting Low 06/12/2013 Other Reaction(s): OTHER Lactose intolerant Other Itching 08/22/2023 Tegaderm Ag Mesh 2 x2 [Wound Dressings]Rash/[place] titis Sulfamethoxazole-Trime thoprim 08/26/2021 Other Reaction(s): Flushing, [...] COMMENT: varicose vein UPPER GASTROINTESTINAL ENDOSCOPY PROCEDURE: AR UPPER GI ENDOSCOPY PERFORMED; COMMENT: historic , multiple with dilitation, neg barretts APPENDECTOMY PROCEDURE: AR APPENDECTOMY HYSTERECTOMY PROCEDURE: HISTORICAL HYSTERECTOMY COLONOSCOPY PROCEDURE: [...] 1:00 PM EST Office Visit Adult Medicine [address] [address] Layne Martinez MD [address] [facility] [address] 06/06/2024 1:00 PM EDT Office Visit Pulmonolgy - [place] [address] [facility] [address] [place] [id number] Riccardo Garay MD [address] [facility] [address] [place] [address] Health Maintenance Due Date Last Done Comments [...] Recently Relevant to Health Maintenance Care Teams Director Television News Relationship Specialty Start Date End Date Layne Martinez MD PCP - General 08/17/23
== END 2024-03-13 14:17 | disposition home or self-care (01) ==
LOC: HO.HKASLDS 14:16
PROVIDERS: Visit Provider Internal Medicine Rheumatology
DX: M34.9 Systemic sclerosis, unspecified (principal); E83.42 Hypomagnesemia
CPT/HCPCS: 36415; 82565; 83735; 84450; 84460; 85025

== ENCOUNTER 2024-04-23 13:05 | Outpatient (AMB) | payer MEDICARE, OTHER, SELFPAY ==
--- NOTE | 2024-04-23 13:10 | MHC.OFFVIS ---
Vital Signs 04/23/24 13:11 Height 5 ft 1 in Weight 94 lb 2.198 oz BMI 17.8 BP 120/70 Blood Pressure Location Lt brachial Position Sitting Intake Visit Reasons: 6 weeks f/u Intake Note: Patient presents today for follow up on arthralgia. Allergies amoxicillin Allergy (Mild, Verified 04/23/24 13:10) Hives sulfamethoxazole [From Bactrim] Adverse Reaction (Intermediate, Verified 04/23/24 13:10) stomach pain trimethoprim [From Bactrim] Adverse Reaction (Intermediate, Verified 04/23/24 13:10) stomach pain nifedipine [From Procardia] Adverse Reaction (Mild, Verified 04/23/24 13:10) Headache lactose intolerant Adverse Reaction (Mild, Uncoded 03/13/24 10:07) Stomach Upset tegaderm tape Adverse Reaction (Mild, Uncoded 03/13/24 10:07) Rash HPI HPI 6 weeks f/u: Details: Raynaud's syndrome has improved with wearing thick gloves. Occurs when she goes out and at home when using refrigerator. It takes effort to warm up with blankets. Resolves within 5 minutes. Occurs daily. Sometimes multiple times a day. She is now on diltiazem 90 mg XL daily. [facility] Medical History Varicose veins of both lower extremities Aortic regurgitation Aortic dilatation Diastolic dysfunction Right ventricular dilation Myasthenia gravis COPD (chronic obstructive pulmonary disease) Ocular myasthenia Lactose intolerance Osteopenia Veronica's disease Subclavian artery thrombosis DVT (deep venous thrombosis) History of colonic diverticulitis Primary biliary cirrhosis GERD (gastroesophageal reflux disease) Sclerodactyly Raynaud's phenomenon Inflammatory bowel disease Hypertension Surgical History History of cataract surgery H/O total colectomy H/O total hysterectomy H/O basal cell carcinoma excision Review of Systems Const All systems reviewed & are unremarkable except as noted in HPI and below Physical Exam Vital Signs: Last Vital Signs BP 120/70 04/23/24 13:11 BMI result Body Mass Index 17.8 Const Other: General: Comfortable CVS: RRR Respiratory: clear to auscultation bilaterally. Good respiratory effort Skin: Sclerodactyly present. Multiple fingers on right hand have bluish color to fingertips. No digital ulcerations. MSK: Heberden nodes present. No tenderness of any joints. Good range of motion of upper extremities and lower extremities. Assessment & Plan Assessment & Plan (1) Systemic sclerosis with limited cutaneous involvement: Comment: Cutaneous disease is controlled without DMARD therapy. Raynaud's syndrome is not controlled with conservative management. Sildenafil has been approved. Rheumatology history: Positive anticentromere antibody, URBAN, sclerodactyly, Raynaud's phenomena, possible history of strictures requiring dilatation from GI (unclear if esophageal dysmotility played a role in the past). Raynaud's syndrome: Nifedipine caused side effect of ankle edema. Failed diltiazem. Sildenafil 04/2024- Code(s): M34.9 - Systemic sclerosis, unspecified Category: Medical Plan: She will taper off of diltiazem. I have prescribed 60 mg b.i.d. extended release for 2 weeks then 30 mg t.i.d. 2 weeks then discontinue Start sildenafil 20 mg b.i.d.. I recommend that she take each dose 4-6 hours apart during the day when her symptoms are most active She will call office or portal message in 1 month for clinical update. If duration or frequency has not reduced of Raynaud's syndrome episodes, I will alter sildenafil regimen. Return to clinic in 2 months (2) Hypomagnesemia: Comment: 02/2024 normal magnesium level Code(s): E83.42 - Hypomagnesemia Category: Medical Plan: She does not need magnesium supplement at this time Medications: New diltiazem HCl Decrease diltiazem 60mg BID ER then 30mg TID for 2 weeks then stop 30 mg PO TID 42 tabs 0RF 14 days diltiazem HCl ER Decrease diltiazem 60mg BID ER then 30mg TID for 2 weeks then stop 60 mg PO Q12H 28 caps 0RF 14 days Changed From sildenafil (pulm.hypertension) administer doses at least 4-6 hours apart. PA needed. Dispense this rx. Replace previous rx. 20 mg PO BID 60 tabs 11RF To sildenafil (pulm.hypertension) 20 mg PO BID 60 tabs 11RF Coding Level of Care Code Est Pt Level 4 (92285) Complex EM visit Add On G2211 Diagnoses Systemic sclerosis with limited cutaneous involvement M34.9 Hypomagnesemia E83.42 Time Spent (min) 21
[2024-04-23 13:11] VITALS: BP 120/70; BMI 17.8
--- OUTSIDE RECORDS SUMMARY | 2024-04-23 15:20 | XMS_ITS ---
Author Organization [facility] Address [address] [address] Care Team Providers Care Progressive Care Unit Registered Nurse Name Role Phone CHITRA HODGSON, SUMAN Primary Care Provider Caitlyn Dyer Unavailable [phone] Allergies Allergen (clinical drug ingredient) Drug/Non Drug Allergy documented on EMR Reaction Allergy Type Onset Date Status amoxicillin AMOXICILLIN Itching Drug Allergy Act mark Bactrim DS Unknown Drug Allergy Active LACTOSE Unknown Drug Allergy Active PROCARDIA Intense Headaches Drug Allergy Active Tegaderm Unknown Allergy Active REASON FOR VISIT HR MEDICARE PE, Annual NETWORK RELAY TESTER Physical 60-85+ Medications Medication SIG (Take, Route, [...] 180 MG Oral for 90 Active pyRIDostigmine Windom ER 180 MG 2 tablet Orally Twice [...] Vital Signs Temperature 97.3 degrees Fahrenheit 07/06/19 24 Blood pressure systolic 126 mm Hg 07/06/19 24 Blood pressure diastolic 58 mm Hg 024 Height 60.5 in 07/06/2023 Weight 100 lbs 07/06/2023 BMI 19.21 kg/m2 07/06/2023 Encounters Encounter Location Date Provider Diagnosis [address] [address] 07/06/2023 Caitlyn Santana Encounter for gynecological examination [...] IF SHE WANTS TO SEE UROGYNECOLOGY AT [facility]. 07/06/2023 Postmenopausal atrophic vaginitis (ICD-10 - N95.2) [...] IF SHE WANTS TO SEE UROGYNECOLOGY AT [facility]. Postmenopausal atrophic vaginitis CONTINUE ESTRADIOL CREAM. RX'S ARE GIVEN BY DR BECERRA. Pending Test Test Name Order Date MAMMOGRAM, SCREENING 07/06/2023 MM Digital Mammo Screening 07/06/2023 Next Appt Details Follow Up: 1 Year, Reason: Provider Name:Caitlyn cardoza, 07/10/2024 01:00:00 PM[facility] [address], [place], [address], Progress Notes * MCKAY JONESDOB:1945 (77 yo F)Acc No.[id number]:07/06/2023 PROGRESS NOTES Patient:?MCKAY JONES Appointment Provider:?Caitlyn cardoza M.D. :1945???Age:77 Y???Sex:Female D ate:07/06/2023 Address:[address] [place] [address] [address], , [facility] Pcp:BERTRAND THOMAS, DO Subjective: * Chief Complaints: * ???HR MEDICARE PEAnnual NETWORK RELAY TESTER Physical 60-85+ * HPI: ???New/Follow-up Patient Consult:? [...] adequate calcium via diet and supplementation ?Significant NETWORK RELAY TESTER problems:?no significant decorator store symptoms or problems * ROS:?general:?no?chest pain.?no?palpitations.?no?headache.?no?cough.?no?shortness of breath.?no?fever.?no?unexplained weight loss.?no?nausea/vomiting.?no?change in bowel movements.?no blood in stool.?no?genitourinary complaints.?no?skin complaints.? * Medical History:? * Toy Consultant History:?/ Para?0/0.?Sexual activity?not currently sexually active.?Last Pap [...] 300MG 1 ORAL three times daily pyRIDostigmine Windom ER 180 MG Tablet Extended Release 2 [...] 1 ORAL three times daily Taking pyRIDostigmine Windom ER 180 MG Tablet Extended Release 2 [...] Temp: 97.3 F. * Examination: ???General Exam: ?CONSTITUTIONAL:?General Appearance:?alert, in no acute distress, normal, well nourished ?NECK/THYROID:?Inspection/Palpation:?normal ?Thyroid:?normal size and shape ?RESPIRATORY:?Auscultation: clear to auscultation bilaterally, Respiratory Effort: normal.?CARDIOVASCULAR:?Auscultation: regular rate and rhythm.?BREAST, Right:?Inspection/Palpation:?no discharge, no masses present, no nipple retraction, no skin changes, no skin dimpling, no tenderness, no lymphadenopathy, no axillary mass, no axillary tenderness ?BREAST, Left:?Inspection/Palpation:?no discharge, no masses present, no nipple retraction, no skin changes, no skin dimpling, no tenderness, no lymphadenopathy, no axillary mass, no axillary tenderness ?GASTROINTESTINAL:?Abdomen:?no masses, nontender, nondistended ?Liver and Spleen:?normal ?Hernias:?no hernias present, no inguinal adenopathy ?MUSCULOSKELETAL:?Inspection/Palpation:?no clubbing, cyanosis, or edema ?SKIN:?Skin:?normal ?NEURO/PSYCH:?Orientation:?time , place, person ?Mood/Affect:?normal?Genitourinary: ?EXTERNAL GENITALIA:?External Genitalia:?normal, no lesions ?VAGINA:?Vagina:?normal appearance, no abnormal discharge, no lesions ?BLADDER:?Bladder:?no mass, nontender ?URETHRA:?Urethra:?no erythema or lesions present ?CERVIX:?Cervix:?surgically absent ?UTERUS:?Uterus:?surgically absent ?ADNEXA:?Adnexa:?surgically absent ?ANUS AND PERINEUM:?Anus/Perineum:?visually normal??? Assessment: * Assessment: 1.?Encounter for gynecologic al [...] IF SHE WANTS TO SEE UROGYNECOLOGY AT [facility].?? 4.?Postmenopausal atrophic v aginitis? Notes: CONTINUE ESTRADIOL CREAM. RX'S ARE GIVEN BY DR BECERRA.?? * Imaging:? * ?Imaging: MAMMOGRAM, SCR EENING * Procedure Codes:? * Preventive Medicine:? ??YOUR PREVENTIVE WELLNESS PLAN:?Osteoporosis prevention?Calcium, D, strength training.?Breast Cancer Screening (Mammogram):?annually.?Cervical Cancer Screening (Pap Smear):?q 3 years with HPV screen.?Colorectal Cancer Screening:?q 10 years.? * Follow Up:?1 Year * Images: Billing Information: * Visit Code:? 44509 Preventive Care Est Pt. Age 65 and over. * Procedure Codes:? * Sign off status: Completed true * Appointment Provider:?Caitlyn Santana M.D. Date:?07/06/2023 Generated for Alpa porras/Kristen/eTransmitting on:?04/23/2024 03:20 PM EDT History and Physical Notes * HPI (History [...] ate calcium via diet and supplementation Significant NETWORK RELAY TESTER problems:: n o significant decorator store symptoms or problems Examination Category Sub-Category Detail [...]
--- OUTSIDE RECORDS SUMMARY | 2024-04-23 15:20 | XMS_ITS ---
Author Organization [facility] Address [address] [facility] [address] [place] [address] Care Team Providers Care Suspender Cutter Name Role Phone CHITRA HODGSON, SUMAN Primary Care Provider Caitlyn Dyer [phone] REASON FOR VISIT REFER TO DR PAREKH Encounters Encounter Location Date Provider Diagnosis [facility] [address] [facility] [address] [place] [address] 07/17/2023 Caitlyn Santana Plan Of Treatment Next Appt Details Provider Name:Caitlyn cardoza, 07/10/2024 01:00:00 PM, [address] [facility], [address], [place], [address], Progress Notes * MCKAY JONESDOB:1945 (77 yo F)Acc No.[id number]:07/17/2023 Patient:?MCKAY JONES :1945???Age:77 Y???Sex:Female Address:[address], , [place], [address] * true * Date:? Generated for Printi ng/Faxing/eTransmitting on:?04/23/2024 03:20 PM EDT
--- OUTSIDE RECORDS SUMMARY | 2024-04-23 15:20 | XMS_ITS | Clinical Summary ---
Author Organization [facility] [address] [facility] [address] Address [address] [facility] [place] [address] Phone Care Team Providers Care Forest Management Professor Name Role Phone Layne Martinez MD Primary Care Provider Allergies Active Allergy Reactions Criticality Noted Date Comments Adalat Headache 06/12/2013 Amoxicillin Itching,Rash Low 06/12/2013 Lactose Nausea And Vomiting Low 06/12/2013 Other Reaction(s): OTHER Lactose intolerant Other Itching 08/22/2023 Tegaderm Ag Mesh 2 x2 [Wound Dressings]Rash/[place] titis Sulfamethoxazole-Trime thoprim 08/26/2021 Other Reaction(s): Flushing, feeling of warmth Medications meclizine (ANTIVERT) 25 mg tablet Take by mouth as needed. Active cyanocobalamin (VITAMIN B-12) 1,000 mcg tablet Take 1 tablet (1,000 mcg total) by mouth 1 (one) time each day. Active omeprazole (PriLOSEC) [address] capsule Take 1 capsule (20 mg total) by mouth 1 (one) time each day. 07/02/19 24 Active ursodioL (ACTIGALL) 300 mg capsule Take 1 capsule (300 mg total) by mouth 3 (three) times a day. 05/07/19 24 Active mirabegron (MYRBETRIQ) 25 mg 24 hr tablet Take by mouth. Active estradioL (ESTRACE) 0.01 % (0.1 mg/gram) vaginal cream Place 1 g vaginally at bedtime. Active acetaminophen (TYLENOL 8 HOUR) 650 mg 8 hr tablet Take 650 mg by mouth every 8 hours as needed. Active latanoprost (XALATAN) 0.005 % ophthalmic solution 1 Drop at bedtime. each eye Active pyRIDostigmine (MESTINON) 180 mg CR tablet Take 360 mg by mouth 2 times daily. Take two tablet by mouth twice a day Active cholecalciferol (VITAMIN D-3) 25 mcg (1,000 unit) capsule Take 2 Tabs by mouth daily. 06/21/19 14 Active aspirin 81 mg EC tablet Take 1 tablet (81 mg total) by mouth 1 (one) time each day. Active UNABLE TO FIND Glucosamine- Chondroit-Vi t C-Mn (GLUCOSAMINE CHONDR 1500 COMPLX OR), Take by mouth 2 times daily. Active MULTIVITAMIN ORAL Take by mouth 1 (one) time each day. Active levothyroxine (SYNTHROID, LEVOTHROID) 88 mcg tablet TAKE 1 TABLET BY MOUTH EVERY DAY 90 tablet 1 02/20/19 25 Active dilTIAZem (CARDIZEM) 90 mg immediate release tablet TAKE 1 TABLET BY MOUTH EVERY DAY 90 tablet 02/21/19 25 Active losartan (COZAAR) 50 mg tabletIndicatio ns:Essential (primary) hypertension TAKE 1 TABLET BY MOUTH TWICE A DAY 180 tablet 1 04/23/19 25 Active fluticasone propionate (FLONASE) 50 mcg/actuation nasal spray 2 Sprays by Each Nare route daily. 025 Discontinued( erapy completed) saccharomyces boulardii (FLORASTOR) 250 mg capsule Take by mouth. 025 Discontinued losartan (COZAAR) 50 mg tablet Take 1 tablet (50 mg total) by mouth 2 (two) times a day. 10/24/19 24 025 Discontinued magnesium oxide (MAG-OX) 400 mg magnesium tablet Take by mouth. 025 Discontinued( erapy completed) ofloxacin (OCUFLOX) 0.3 % ophthalmic solution 1 Drop daily. Each eye 3 times a week 025 Discontinued( erapy completed) reservoir inhalation (INSPIREASE) device Use as directed 05/06/19 16 025 Discontinued( erapy completed) Active Problems Problem Noted Date Diagnosed Date [...] on Chest CT 12/2012, sees Dr Hernandez Encounters Date Type Department Care Team Description 04/01/2024 1:00 PM EST Office Visit Adult Medicine [address] [address] Layne Martinez MD Primary hypertension (Primary Dx); Acquired hypothyroidism; Scleroderma (CMS/HCC); Raynaud's disease without gangrene; Primary biliary cirrhosis (CMS/HCC); OAB (overactive bladder) from Last 3 Months Immunizations Name Administration Dates Next Due Influenza [...] COMMENT: varicose vein UPPER GASTROINTESTINAL ENDOSCOPY PROCEDURE: MN UPPER GI ENDOSCOPY PERFORMED; COMMENT: historic , multiple with dilitation, neg barretts APPENDECTOMY PROCEDURE: MN APPENDECTOMY HYSTERECTOMY PROCEDURE: HISTORICAL HYSTERECTOMY COLONOSCOPY PROCEDURE: [...] Date Smoking Tobacco: Never Smokeless Tobacco: Never Tobacco Cessation:Counseling Given: Not Answered Alcohol Use Standard Drinks/Week Comments Never 0 (1 standard drink = 0.6 oz pur e alcohol) Housing Instability Answer Date Recorde d Are you worried that in the next 2 months you may not have stable housing? No 04/01/2024 Food Access & Nutrition Answer Date Rec orded Do you have access to a vari ety of food including fruits and vegetables? Yes 04/01/2024 Health Literacy Answer Date Recorded How often do you need to hav e someone help you when you read instructions, pamphlets, or other written material from your doctor or pharmacy? Sometimes 04/01/2024 Caregiver: How often do you need to have someone help you when you read instructions, pamphlets, or other written material from your doctor or pharmacy? Not on file 04/01/2024 Financial Risk Answer Date Recorded How hard is it for you to pa y for the very basics like food, housing, medical care, and air conditioning / heating? Not very hard 04/01/2024 Transportation Answer Date Recorded Has the lack of transportati on kept you from meetings, work, or from getting things needed for daily living? No Has the lack of transportati on kept you from medical appointments or from getting medications? No 04/01/2024 Social Isolation Answer Date Recorded How often do you feel lonely or isolated from th ose around you? Rarely 04/01/2024 Food Risk Answer Date Recorded Within the past 12 months we worried whether our food would run out before we got money to buy more. Never true 04/01/2024 Within the past 12 months th e food we bought just didn't last and we didn't have money to get more. Never true 04/01/2024 Dependent Care Answer Date Recorded Do you need help finding or paying for care for your loved ones. For example, children's tutor nursery or elderly care for an older adult? Yes 04/01/2024 Education Answer Date Recorded Do you think completing more education or training, like finishing a GED, going to college, or learning a trade, would be helpful for you? No 04/01/2024 Employment and Income Answer Date Recor ded During the last four weeks, have you been actively looking for work? No 04/01/2024 Living Situation Answer Date Recorded What is your living situation? 0 04/01/2024 Comments No Sex and Gender Information Value Date Recorded Sex Assigned at Not on file Legal Sex Female 6:31 AM EST Gender Identity Not on file Sexual Orientation Not on file Obstetrics History Last Filed Vital Signs Vital Sign Reading Time Taken Comments Blood Pressure 142/57 04/01/2024 1:02 PM EST Pulse 63 04/01/2024 1:02 PM EST Temperature 35.7 ??C (96.2 ??F) 04/01/2024 1:02 PM ES T Respiratory Rate 16 04/01/2024 1:02 PM EST Oxygen Saturation - - Inhaled Oxygen Concentration - - Weight 43.9 kg (96 lb 12.8 oz) 04/01/2024 1:02 P M EST Height 155 cm (5' 1.02 ) 04/01/2024 1:02 PM EST Body Mass Index 18.28 04/01/2024 1:02 PM EST Plan of Treatment Upcoming Encounters Date Type Department Care Team (Late st Contact Info) Description 06/06/2024 1:00 PM EDT Office Visit Pulmonolgy - [place] [address] [facility] [address] [place] [phone] Riccardo Garay MD [address] [facility] [address] [place] [address] 07/30/2024 1:30 PM EDT Office Visit Adult Medicine - [place] [address] [place] [address] Abdullahi Higgins PA [address] [place] [address] Health Maintenance Due Date Last Done Comments Hepatitis A Vaccines (1 of 2 - Risk 2-dose series) 11/11/1962 Zoster Vaccines (1 of 2) 11/11/1993 Hepatitis B Vaccines (1 of 3 - Risk 3-dose series) 2003 RSV Immunization Patients 60+ Years Old (1 - 1-dose 75+ series) 11/11/2018 Medicare Annual Wellness Visit 01/21/2022 Osteoporosis Screening (Bone Density Screening) 01/21/2022 Depression Screening 04/01/2025 04/01/2024 Falls Risk Assessment 04/01/2025 04/01/2024 Hypertension/CHF/CAD Annual BMP Blood Test 04/01/2025 04/01/2024, 11/13/2023, 11/13/2023 Social Influencers of Health Screening 04/01/2025 04/01/2024 DTaP,Tdap,and Td Vaccines (4 - Td or Tdap) 12/04/2026 12/04/2016, 08/18/2010, 02/12/1997 Cholesterol Screening (Lipid Panel) 04/01/2029 04/01/2024, 05/03/2023 Pneumococcal Vaccine: 50+ Years Completed 07/01/2014, 08/10/2010, 08/08/2010 Influenza Vaccine [...] patient's age to complete this topic Meningococcal B Vacine Aged Out No lo nger eligible based on patient's age to complete this topic RSV Immunization Patients Under 20 months Aged Out No longer eligible based on patient's age to complete this topic Varicella Vaccines Aged Out No longer eligible based on patient's age to complete this topic Procedures Procedure Name Priority Date/Time Associated Diagnosis Comments THYROID STIMULATING HORMONE WITH REFLEX TO FREE T4 AND FREE T3 Routine 04/01/2024 2:11 PM EST Primary hypertension Acquired hypothyroidism Scleroderma (CMS/HCC) Raynaud's disease without gangrene Primary biliary cirrhosis (CMS/HCC) OAB (overactive bladder) LIPID PANEL WITH REFLEX TO DIRECT LDL Routine 04/01/2024 2:11 PM EST Primary hypertension Acquired hypothyroidism Scleroderma (CMS/HCC) Raynaud's disease without gangrene Primary biliary cirrhosis (CMS/HCC) OAB (overactive bladder) COMPREHENSIVE METABOLIC PANEL Routine 04/01/2024 2:11 PM EST Primary hypertension Acquired hypothyroidism Scleroderma (CMS/HCC) Raynaud's disease without gangrene Primary biliary cirrhosis (CMS/HCC) OAB (overactive bladder) from Last 3 Months Results * Thyroid stimulating hormone with reflex to free t4 and free t3 (04/01/2024 2:11 PM EST) TSH 3.14 0.40 - 4.00 mcIU/mL LAB CHEMISTRY METHOD 04/01/2024 8:06 PM [facility] Blood Venous blood specimen / Unknown Venipuncture / Unknown 04/01/2024 2:11 PM EST 04/01/2024 2:11 PM EST us Layne Martinez MD LAB BLOOD ORDERABLES F inal Result [facility] [address] [place] [address], [place] [phone] * Lipid panel with reflex to direct LDL (04/01/2024 2:11 PM EST) Cholesterol 119 0 - 200 mg/dL LAB CHEMISTRY METHOD 04/01/2024 7:11 PM [facility] Triglycerides 117 0 - 150 mg/dL LAB CHEMISTRY METHOD 04/01/2024 7:11 PM [facility] HDL 54 >=40 mg/dL LAB CHEMISTRY METHOD 04/01/2024 7:11 PM [facility] LDL Calculated 42 0 - 100 mg/dL LAB CHEMISTRY METHOD 04/01/2024 7:11 PM [facility] VLDL Cholesterol Joni 23.4 mg/dL LAB CHEMISTRY METHOD 04/01/2024 7:11 PM [facility] Non HDL Chol. (LDL+VLDL) 65 <145 mg/dL LAB CHEMISTRY METHOD 04/01/2024 7:11 PM [facility] Chol/HDL Ratio 2.2 0.0 - 4.4 LAB CHEMISTRY METHOD 04/01/2024 7:11 PM [facility] Blood Venous blood specimen / Unknown Venipuncture / Unknown 04/01/2024 2:11 PM EST 04/01/2024 2:11 PM EST us Layne Martinez MD LAB BLOOD ORDERABLES F inal Result [facility] [address] [place] [address], [place] [phone] * (ABNORMAL) Comprehensive metabolic panel (04/01/2024 2:11 PM EST) Sodium 140 133 - 145 mmol/L LAB CHEMISTRY METHOD 04/01/2024 7:22 PM [facility] Potassium 4.3 3.5 - 5.5 mmol/L LAB CHEMISTRY METHOD 04/01/2024 7:22 PM [facility] Chloride 116(H) 96 - 110 mmol/L LAB CHEMISTRY METHOD 04/01/2024 7:22 PM [facility] CO2 24 21 - 32 mmol/L LAB CHEMISTRY METHOD 04/01/2024 7:22 PM [facility] Anion Gap 0(L) 3 - 11 LAB CHEMISTRY METHOD 04/01/2024 7:22 PM [facility] Glucose 95 70 - 100 mg/dL LAB CHEMISTRY METHOD 04/01/2024 7:22 PM [facility] BUN 30(H) 5 - 25 mg/dL LAB CHEMISTRY METHOD 04/01/2024 7:22 PM [facility] Creatinine 1.27(H) 0.50 - 1.10 mg/dL LAB CHEMISTRY METHOD 04/01/2024 7:22 PM [facility] eGFR 43(L) >=60 mL/min/1. 73m2 LAB CHEMISTRY METHOD 04/01/2024 7:22 PM [facility] Comment:Calculation based on the??Chronic Kidney Disease Epidemiology Collaboration (CKD-EPI) equation refit??without adjustment for race. BUN/Creatinine Ratio 23.6 LAB CHEMISTRY METHOD 04/01/2024 7:22 PM [facility] Calcium 9.5 8.5 - 10.5 mg/dL LAB CHEMISTRY METHOD 04/01/2024 7:22 PM [facility] AST (SGOT) 14 10 - 42 unit/L LAB CHEMISTRY METHOD 04/01/2024 7:22 PM [facility] ALT (SGPT) 14 10 - 60 unit/L LAB CHEMISTRY METHOD 04/01/2024 7:22 PM [facility] Alkaline Phosphatase 77 42 - 121 unit/L LAB CHEMISTRY METHOD 04/01/2024 7:22 PM [facility] Total Protein 6.7 6.0 - 8.0 g/dL LAB CHEMISTRY METHOD 04/01/2024 7:22 PM [facility] Albumin 3.4 3.2 - 5.0 g/dL LAB CHEMISTRY METHOD 04/01/2024 7:22 PM [facility] Total Bilirubin 0.3 0.0 - 1.4 mg/dL LAB CHEMISTRY METHOD 04/01/2024 7:22 PM [facility] Blood Venous blood specimen / Unknown Venipuncture / Unknown 04/01/2024 2:11 PM EST 04/01/2024 2:11 PM EST us Layne Martinez MD LAB BLOOD ORDERABLES F inal Result [facility] [address] [place] [address], from Last 3 Months Insurance MEDICARE UNICARE Care Teams Forest Management Professor Relationship Specialty Start Date End Date Layne Martinez MD [address] [place] [phone] PCP - General 08/17/23
--- OUTSIDE RECORDS SUMMARY | 2024-04-23 15:20 | XMS_ITS ---
Author Organization [employer] Address [address] [place] [address] Care Team Providers Care Clearance Cutter Name Role Phone CHITRA HODGSON, SUMAN Primary Care Provider Caitlyn Dyer Unavailable [phone] REASON FOR VISIT HR MEDICARE PE Encounters Encounter Location Date Provider Diagnosis [facility] [employer] [address] [place] [address] 05/24/2023 Caitlyn Santana Plan Of Treatment Next Appt Details Provider Name:Caitlyn cardoza, 07/10/2024 01:00:00 PM, [address], [address], [place], [address], Progress Notes * MCKAY JONESDOB:1945 (78 yo F)Acc No.[id number]:05/24/2023 PROGRESS NOTES Patient:?KAREN MCKAY Appointment Provider:?Caitlyn cardoza M.D. :1945???Age:77 Y???Sex:Female D ate:05/24/2023 Address: [address], , [id number] Pcp:SUMAN BUENROSTRO MD Subjective: * Chief Complaints: * ???1. HR MEDICARE PE. * Medical History:? Objective: * Vitals:? Assessment: Plan: * Treatment: * Images: Billing Information: * Visit Code:? * Procedure Codes:? * Electronic signature of Markus Santana MD on 04/23/2024 at 03:20 PM EDT Sign off status: Pending * Appointment Provider:?Caitlyn Santana M.D. Date:?05/24/2023 Generated for Alpa porras/Kristen/Sharon on:?04/23/2024 03:20 PM EDT
--- OUTSIDE RECORDS SUMMARY | 2024-04-23 15:21 | XMS_ITS | Encounter Summary ---
Author Organization [facility] Address [address] [place] [address] Care Team Providers Care Shade Maker Name Role Phone Layne Martinez MD Primary Care Provider Reason for Visit * Reason Comments Follow-up Medication Visit Encounter Details Date Type Department Care Team ([facility] Contact Info) Description 04/01/2024 1:00 PM EST Office Visit Adult Medicine - [place] [address] [place] [address] Layne Martinez MD [address] [place] [address] Primary hypertension (Primary Dx); Acquired hypothyroidism; Scleroderma (CMS/HCC); Raynaud's disease without gangrene; Primary biliary cirrhosis (CMS/HCC); OAB (overactive bladder) Social History Tobacco Use Types Packs/Day Years [...] for your loved ones. For example, children's entertainer or elderly care for an older adult? [...] on file Sexual Orientation Not on file documented as of this encounter Last Filed Vital Signs Vital Sign Reading [...] Mass Index 18.28 04/01/2024 1:02 PM EST documented in this encounter Progress Notes * Layne Martinez MD - 04/01/2024 1:00 PM EST PLEASE BRING ALL YOUR MEDICATIONS- PILLS, INHALERS, OINTMENTS AND OVER THE COUNTER SUPPLEMENTS TO EACH VISIT. * Layne Martinez MD - 04/01/2024 1:00 PM EST CHIEF COMPLAINT: Follow-up and Medication Visit IDENTIFIER: Angela Zuleta is a 78 y.o. old female. HPI: I am seeing Angela today for fu. she lives alone at home, When seen in oct- I had switched diltiazem tmo nifedipine for raynauds -per ( rheum) recommendations. She did not like the sideeffects of lightheadedness,cramping of her extremities and went back on diltiazem. Now on 90mg daily. HTN- BP is well controlled, taking losartan 50mg bid. Denies any CP,SOB, palpitations, leg swelling. Hypothyroid- on levothyoxine 88mcg daily.denies any heat/cold intolerance. Due for TSH check. Occular myasthenia gravis- fby at [facility]-needs to call and make an appt. Taking pyridostigmine 360mg bid. COPD-no issues. F/rnbu for 6mm pulm nodule. Currently not on any medications. Scleroderm/ Raynauds- taking diltiazem 180mg daily. Per she suggested cut back on diltiazm and start on nifedipine. Taking omeprazole for GERD symptoms. Glaucoma- fby . Using latanoprost in both eyes. Primary biliary cholangitis- Fby GI . On ursodiol 300mg tid. OOB-On myrbetriq 25mg daily. fby oreman and uro oreman. Using estradiol vaginal cream weekly. No falls snce . ROS: GENERAL: No malaise, significant weight loss or fever HEENT: No changes in hearing or vision, nose bleeds or other nasal problems NECK: No lumps, goiter, pain or significant neck swelling RESPIRATORY: No cough, wheezing or shortness of breath CARDIOVASCULAR: No chest pain, leg swelling or palpitations GI: No constipation/diarrhea. No abdominal discomfort, blood in stools or black stools : No dysuria, frequency or incontinence MUSCULOSKELETAL: No joint pain or swelling, back pain, or muscle pain. NEURO: No persistent headache, syncope, seizures, weakness or numbness The remainder of review of systems is noncontributory. 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[facility]) 06/12/2013 Cholelithiasis 06/12/2013 Hiatal hernia with gastroesophageal reflux 06/12/2013 Hypertension 06/12/2013 Hypothyroidism 06/12/2013 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[facility]) 06/12/2013 Myasthenia gravis ([facility]) 06/12/2013 Osteopenia 06/12/2013 Primary biliary cholangitis ([facility]) 06/12/2013 Raynaud disease 06/12/2013 Scleroderma ([facility]) 06/12/2013 Surgical menopause 06/12/2013 Vascular calcification 06/12/2013 SOCIAL HISTORY: Social History Tobacco Use Smoking status: Never Smokeless tobacco: Never Substance Use Topics Alcohol use: Never FAMILY HISTORY: Family Status Relation Name Status Father at age 79 heart failure Mother at age 83 Brother (Not Specified) Sister (Not Specified) Sister (Not Specified) Sister Alive Brother Alive No partnership data on file Family History Problem Relation Name Age of Onset Glaucoma Father Other (Other: kidney disease) Father Stroke Mother Heart attack Brother Coronary artery disease Sister aneurysm Other (Other: brain tumors) Sister ACTIVE MEDICATIONS: No outpatient medications have been marked as taking for the 04/01/24 encounter (Office Visit) with Layne Martinez MD. ALLERGIES: Adalat, Other, Sulfamethoxazole-trimethoprim, Amoxicillin, and Lactose PHYSICAL EXAM: Blood pressure (!) 142/57, pulse 63, temperature 35.7 ??C (96.2 ??F), temperature source Temporal, resp. rate 16, height 1.55 m (61.02 ), weight (!) 43.9 kg (96 lb 12.8 oz). Body mass index is 18.28 kg/m??. BMI is 18.5 to 24.9 (within the normal range) and will be followed APPEARANCE: Alert and in no acute distress HEART: RRR with normal S1 and S2, no murmurs LUNG: Clear to auscultation bilaterally. No accessory muscle use. No wheeze or crackles EXTREMITIES: Extremities warm and well perfused without clubbing, cyanosis, or edema GAIT: Normal NEURO: Alert and oriented x 3. No focal deficits IMPRESSION: 1. Primary hypertension 2. Acquired hypothyroidism 3. Scleroderma (CMS/HCC) 4. Raynaud's disease without gangrene 5. Primary biliary cirrhosis (CMS/HCC) 6. OAB (overactive bladder) PLAN: BP is acceptable range, c/w losartan and diltiazem. Cliniically euthyroid, on levothyroxine. Due for TSH check. Keep fu with specialist. Fu in 4months. Orders Placed This Encounter Procedures Comprehensive metabolic panel Standing Status: Future Standing Expiration Date: 04/01/2025 Lipid panel with reflex to direct LDL Standing Status: Future Standing Expiration Date: 04/01/2025 Thyroid stimulating hormone with reflex to free t4 and free t3 Standing Status: Future Standing Expiration Date: 04/01/2025 Layne Martinez MD on 04/01/2024 at 1:23 PM EST documented in this encounter Plan of Treatment Upcoming Encounters Date Type Department Care Team (Late st Contact Info) Description 06/06/2024 1:00 PM EDT [facility] [place] [address] [place] [address] Riccardo Garay MD [address] [address] 07/30/2024 1:30 PM EDT Office Visit Adult Medicine - [place] [address] [place] [address] Abdullahi Higgins PA [address] [place] [address] documented as of this encounter Results * Thyroid stimulating hormone with reflex to free t4 and free t3 (04/01/2024 2:11 PM EST) Pathologist [facility] TSH 3.14 0.40 - 4.00 mcIU/mL LAB CHEMISTRY METHOD 04/01/2024 8:06 PM EST [facility] Blood Venous blood specimen / Unknown Venipuncture / Unknown 04/01/2024 2:11 PM EST 04/01/2024 2:11 PM EST us Layne Martinez MD LAB BLOOD ORDERABLES F inal Result [facility] [address] [place] [address], * Lipid panel with reflex to direct LDL (04/01/2024 2:11 PM EST) Cholesterol 119 0 - 200 mg/dL LAB CHEMISTRY METHOD 04/01/2024 7:11 PM EST [facility] Triglycerides 117 0 - 150 mg/dL LAB CHEMISTRY METHOD 04/01/2024 7:11 PM [facility] HDL 54 >=40 mg/dL LAB CHEMISTRY METHOD 04/01/2024 7:11 PM [facility] LDL Calculated 42 0 - 100 mg/dL LAB CHEMISTRY METHOD 04/01/2024 7:11 PM EST [facility] VLDL Cholesterol Joni 23.4 mg/dL LAB CHEMISTRY METHOD 04/01/2024 7:11 PM [facility] Non HDL Chol. (LDL+VLDL) 65 <145 mg/dL LAB CHEMISTRY METHOD 04/01/2024 7:11 PM [facility] Chol/HDL Ratio 2.2 0.0 - 4.4 LAB CHEMISTRY METHOD 04/01/2024 7:11 PM [facility] Blood Venous blood specimen / Unknown Venipuncture / Unknown 04/01/2024 2:11 PM EST 04/01/2024 2:11 PM EST us Layne Martinez MD LAB BLOOD ORDERABLES F inal Result [facility] [address] [place] [address], [place] [phone] * (ABNORMAL) Comprehensive metabolic panel (04/01/2024 2:11 PM EST) Sodium 140 133 - 145 mmol/L LAB CHEMISTRY METHOD 04/01/2024 7:22 PM [facility] Potassium 4.3 3.5 - 5.5 mmol/L LAB CHEMISTRY METHOD 04/01/2024 7:22 PM [facility] Chloride 116(H) 96 - 110 mmol/L LAB CHEMISTRY METHOD 04/01/2024 7:22 PM [facility] CO2 24 21 - 32 mmol/L LAB CHEMISTRY METHOD 04/01/2024 7:22 PM [facility] Anion Gap 0(L) 3 - 11 LAB CHEMISTRY METHOD 04/01/2024 7:22 PM [facility] Glucose 95 70 - 100 mg/dL LAB CHEMISTRY METHOD 04/01/2024 7:22 PM [facility] BUN 30(H) 5 - 25 mg/dL LAB CHEMISTRY METHOD 04/01/2024 7:22 PM [facility] Creatinine 1.27(H) 0.50 - 1.10 mg/dL LAB CHEMISTRY METHOD 04/01/2024 7:22 PM [facility] eGFR 43(L) >=60 mL/min/1. 73m2 LAB CHEMISTRY METHOD 04/01/2024 7:22 PM [facility] Comment:Calculation based on the??Chronic Kidney Disease Epidemiology Collaboration (CKD-EPI) equation refit??without adjustment for race. BUN/Creatinine Ratio 23.6 LAB CHEMISTRY METHOD 04/01/2024 7:22 PM [facility] Calcium 9.5 8.5 - 10.5 mg/dL LAB CHEMISTRY METHOD 04/01/2024 7:22 PM [facility] AST (SGOT) 14 10 - 42 unit/L LAB CHEMISTRY METHOD 04/01/2024 7:22 PM [facility] ALT (SGPT) 14 10 - 60 unit/L LAB CHEMISTRY METHOD 04/01/2024 7:22 PM [facility] Alkaline Phosphatase 77 42 - 121 unit/L LAB CHEMISTRY METHOD 04/01/2024 7:22 PM [facility] Total Protein 6.7 6.0 - 8.0 g/dL LAB CHEMISTRY METHOD 04/01/2024 7:22 PM [facility] Albumin 3.4 3.2 - 5.0 g/dL LAB CHEMISTRY METHOD 04/01/2024 7:22 PM [facility] Total Bilirubin 0.3 0.0 - 1.4 mg/dL LAB CHEMISTRY METHOD 04/01/2024 7:22 PM [facility] Blood Venous blood specimen / Unknown Venipuncture / Unknown 04/01/2024 2:11 PM EST 04/01/2024 2:11 PM EST us Layne Martinez MD LAB BLOOD ORDERABLES F inal Result [facility] [address] [place] [address], [place] [phone] documented in this encounter Visit Diagnoses Diagnosis Primary hypertension- Primary Unspecified essential hypertension Acquired hypothyroidism Unspecified hypothyroidism Scleroderma (CMS/HCC) Systemic sclerosis Raynaud's disease without gangrene Primary biliary cirrhosis (CMS/HCC) Biliary cirrhosis OAB (overactive bladder) documented in this encounter Discontinued Medications Medication Sig Discontinue Reason Start Date End Da te magnesium oxide (MAG-OX) 400 mg magnesium tablet Take by mouth. Therapy completed 04/01/2024 fluticasone propionate (FLONASE) 50 mcg/actuation nasal spray 2 Sprays by Each Nare route daily. Therapy completed 04/01/2024 ofloxacin (OCUFLOX) 0.3 % ophthalmic solution 1 Drop daily. Each eye 3 times a week Therapy completed 04/01/2024 saccharomyces boulardii (FLORASTOR) 250 mg capsule Take by mouth. 04/01/2024 reservoir inhalation (INSPIREASE) device Use as directed Therapy completed 05/06/2015 04/01/2024 documented as of this encounter Additional Health Concerns Assessment Noted Time PHQ-9 Depression Total Score: 7 04/01/19 25 8:58 AM EST documented as of this encounter Care Teams Shade Maker Relationship Specialty Start Date End Date Layne Martinez MD [address] [place] [address] PCP - General 08/17/23 documented as of this encounter
--- OUTSIDE RECORDS SUMMARY | 2024-04-23 15:21 | XMS_ITS | Patient Health Record ---
Author [facility] Address [address] [place] [address] Care Team Providers Care Eyeletter Name Role Phone Teodoro Ventura Primary Care Provider Khris Steel Unavailable [phone] Allergies Allergen (clinical drug ingredient) Drug/Non Drug Allergy documented on EMR Reaction Allergy Type Onset Date Status Bactrim Unknown Drug Allergy Active Lactose Unknown [...] for 90 Active Vitamin B12 Active pyRIDostigmine [place] ER 180 MG Oral for 90 Active [...] Status Risk Notes Problem Acquired hallux valgus (76661266) Hallux valgus (acquired), left foot (M20.12) Active confirmed Problem Acquired hallux valgus (52043508) Hallux valgus (acquired), right foot (M20.11) Active confirmed Plan Of Treatment Pending Test Test Name Order Date X ray : Foot, left 3V 09/14/2021 X ray : Foot, right 3V 09/14/2021 Insurance Providers Payer Name Payer Address Payer Phone Subscriber Number Group Number Insured Name Patient Relationship to Insured Coverage Start Date Coverage End Date Medicare National [employer] [address] [place] [address] [id number] Angela Zuleta Self - patient is the insured [employer] ([employer]) [address] [place] [address] [phone] [id number] Angela Zuleta Self - patient is [...]
== END 2024-04-23 13:50 | disposition home or self-care (01) ==
LOC: HO.RHES 13:06
PROVIDERS: Visit Provider Internal Medicine Rheumatology
DX: M34.9 Systemic sclerosis, unspecified (principal); E83.42 Hypomagnesemia
CPT/HCPCS: 99214; G2211

== ENCOUNTER → 2024-04-23 13:05 | Outpatient (BNVA) | payer MEDICARE, OTHER, SELFPAY | PROVIDERS: Visit Provider Internal Medicine Rheumatology | DX: M34.9 Systemic sclerosis, unspecified (principal); E83.42 Hypomagnesemia | CPT/HCPCS: 99212 ==

== ENCOUNTER 2024-06-25 13:56 | Outpatient (AMB) | payer MEDICARE, OTHER, SELFPAY ==
--- NOTE | 2024-06-25 13:56 | MHC.OFFVIS ---
Vital Signs 06/25/24 13:57 Height 5 ft 1 in Weight 93 lb 14.671 oz BMI 17.7 BP 120/70 Blood Pressure Location Lt brachial Position Sitting Intake Visit Reasons: 2 Months Intake Note: Patient presents today for follow up on arthralgia. Allergies amoxicillin Allergy (Mild, Verified 06/25/24 13:58) Hives sulfamethoxazole [From Bactrim] Adverse Reaction (Intermediate, Verified 06/25/24 13:58) stomach pain trimethoprim [From Bactrim] Adverse Reaction (Intermediate, Verified 06/25/24 13:58) stomach pain nifedipine [From Procardia] Adverse Reaction (Mild, Verified 06/25/24 13:58) Headache lactose intolerant Adverse Reaction (Mild, Uncoded 03/13/24 10:07) Stomach Upset tegaderm tape Adverse Reaction (Mild, Uncoded 03/13/24 10:07) Rash HPI HPI 2 Months: Details: She picked up sildenifil rx. There is a drug interaction with UTI. Tapered off of diltiazem for a few weeks In the freezer department in the [employer] store her raynaud's sydrome in hands is active with purplish appearance of hands. She has been monitoring her BP at home. She had a few readings of sys 140s and 130s. She dysphasia sometimes. Hard to swallow large pillow. Sometimes warm PFSH Medical History (Updated 06/25/24 @ 15:42 by Christian Mckinney MD) Varicose veins of both lower extremities Aortic regurgitation Aortic dilatation Diastolic dysfunction Right ventricular dilation Myasthenia gravis COPD (chronic obstructive pulmonary disease) Ocular myasthenia Lactose intolerance Osteopenia Veronica's disease Subclavian artery thrombosis DVT (deep venous thrombosis) History of colonic diverticulitis Primary biliary cirrhosis GERD (gastroesophageal reflux disease) Sclerodactyly Raynaud's phenomenon Inflammatory bowel disease Hypertension Surgical History History of cataract surgery H/O total colectomy H/O total hysterectomy H/O basal cell carcinoma excision Physical Exam Vital Signs: Last Vital Signs BP 120/70 06/25/24 13:57 BMI result Body Mass Index 17.7 Const Other: General: Comfortable CVS: RRR Respiratory: clear to auscultation bilaterally. Good respiratory effort Skin: Sclerodactyly present. Multiple fingers on right hand have bluish color to fingertips. No digital ulcerations. MSK: Heberden nodes present. No tenderness of any joints. Normal range of motion of upper extremities and lower extremities. Bilateral ankle edema right worse than left. Assessment & Plan Assessment & Plan (1) Systemic sclerosis with limited cutaneous involvement: Comment: Cutaneous disease is controlled without DMARD therapy. Raynaud's syndrome is not controlled (see below). She has experienced dysphagia relieved with warm water after dysphagia to food. She had barium swallow performed August 2023 at [facility] when she had acute on chronic worsening dysphagia, which resolved. Rheumatology history: Positive anticentromere antibody, URBAN, sclerodactyly, Raynaud's phenomena, possible history of strictures requiring dilatation from GI (unclear if esophageal dysmotility played a role in the past). Code(s): M34.9 - Systemic sclerosis, unspecified Category: Medical Plan: I will obtain results of barium swallow from August 2023. I will consider repeating barium swallow after I reviewed results. Return to clinic in 2 months (2) Raynaud's phenomenon: Comment: Uncontrolled. She has tapered off of diltiazem. Blood pressure is normotensive. Rheumatology history: Nifedipine caused side effect of ankle edema. Failed diltiazem. Sildenafil 06/2024- Code(s): I73.00 - Raynaud's syndrome without gangrene Category: Medical Qualifiers: Raynaud?s-associated gangrene presence: without gangrene Qualified Code(s): I73.00 - Raynaud's syndrome without gangrene Plan: She will start sildenafil 20 mg t.i.d. after she completes antibiotic for UTI in 2 days (drug interaction per pharmacy). I recommend that she take each dose 4-6 hours apart during the day when her symptoms are most active. Continue wearing gloves when exposed to cold including grocery shopping Return to clinic in 3 months (3) Balance problem: Comment: History of myasthenia gravis. We discussed conservative management. She has been to physical therapy 4 times in the past but was not compliant with exercises after PT course. We discussed the importance of regular exercise for strengthening and muscle building. She agreed to trying physical therapy again to improve balance and lower extremity strength. Code(s): R26.89 - Other abnormalities of gait and mobility Category: Medical Plan: PT ordered Orders: Orders PT Evaluation and Treatment Today G70.00 - Myasthenia gravis without (acute) exacerbation, R26.89 - Other abnormalities of gait and mobility Medications: Discontinued diltiazem HCl ER Decrease diltiazem 60mg BID ER then 30mg TID for 2 weeks then stop Discontinued Reason: Doctor's Order 60 mg PO Q12H 14 days 28 caps 0RF Coding Level of Care Code Est Pt Level 4 (65841) Complex EM visit Add On G2211 Diagnoses Systemic sclerosis with limited cutaneous involvement M34.9 Raynaud's phenomenon without gangrene I73.00 Raynaud?s-associated gangrene presence: without gangrene Balance problem R26.89
[2024-06-25 13:57] VITALS: BP 120/70; BMI 17.7
--- OUTSIDE RECORDS SUMMARY | 2024-06-25 14:01 | XMS_ITS | Encounter Summary ---
Author Organization [facility] Address [address] [place] [address] Care Team Providers Care Diorama Model Maker Name Role Phone Layne Martinez MD Primary Care Provider Reason for Visit * Reason Onset Date Comments UTI 06/19/2024 Encounter Details Date Type Department Care Team (Late st Contact Info) Description 06/19/2024 Telephone Adult Medicine - [place] [address] [facility] [place] [phone] Layne Martinez MD [address] [place] [address] UTI Social History Tobacco Use Types Packs/Day Years [...] care for your loved ones. For example, home child care provider or elderly care for an older adult? [...] on file documented as of this encounter Progress Notes * Abdi Dorman RN - 06/20/2024 8:27 AM EDT Pt states she has urinary frequency, urgency and dysuria, without flank pain, fever, chills, or abnormal vaginal discharge or bleeding., appointment scheduled * Abdi Dorman RN - 06/19/2024 2:15 PM EDT Pt will call back tomorrow * Chelo Hand - 06/19/2024 9:48 AM EDT Patient call requires triage: Symptoms patient is presenting: UTI symptoms, peeing is painful and colindres, discomfort. Pt says she will be busy for the rest of the day/unable to answer the phone, says you can leave a voicemail withany appointment for tomorrow and she will make it [phone] How long has patient had these symptoms?: a couple days, getting worse For ALL patients calling to schedule any appointment (routine, sick visit, follow up, consult, etc.) in the outpatient setting please ask the following questions: Do you have fever of higher than 101, sore throat with difficulty swallowing or severe shortness ofbreath? no If YES to any of these above symptoms, send a message to triage and do not book. Red dot. If no, an audio or video visit should be booked. Have you had close contact with someone with Coronavirus in the last 14 days? yes Have you traveled abroad? no Have you traveled recently to another state outside of [place], [place], [place], [place], [place], [place], [place]? no o If yes, did you quarantine for 14 days or have a negative covid test? no If yes to any of the above, patient is not to be scheduled in office until after 14 day quarantine or negative covid test. If pain or injury related was it due to an accident at work or from a motor vehicle accident? If yes, date of accident/Injury: No If yes, gather 3rd green party insurance information Third Republican Information: not applicable PCP: Layne Martinez MD Payor: MEDICARE / Plan: MEDICARE PART A & B / Product Type: Medicare / documented in this encounter Plan of Treatment Upcoming Encounters Date Type Department Care Team (Late st Contact Info) Description 07/30/2024 1:30 PM EDT Office Visit Adult Medicine - [place] [address] [place] [address] Abdullahi Higgins PA [address] [place] [address] 08/04/2024 3:45 PM EDT Office Visit Pulmonolgy - [place] [address] [place] [address] Riccardo Garay MD [address] [facility] [address] [place] [address] documented as of this encounter Visit Diagnoses Not on filedocumented in this encounter Additional Health Concerns Assessment Noted Time PHQ-9 Depression Total Score: 7 04/01/19 25 8:58 AM EST documented as of this encounter Care Teams Diorama Model Maker Relationship Specialty Start Date End Date Layne Martinez MD [address] [place] [address] PCP - General 08/17/23 documented as of this encounter
--- OUTSIDE RECORDS SUMMARY | 2024-06-25 14:01 | XMS_ITS | Patient Health Record ---
Author Organization [facility] Address [address] [place] [address] Care Team Providers Care Cement Side Laster Name Role Phone Teodoro Ventura Primary Care Provider Khris Steel Unavailable [phone] Allergies Allergen (clinical drug ingredient) Drug/Non Drug [...] for 90 Active Vitamin B12 Active pyRIDostigmine Porter ER 180 MG Oral for 90 Active [...] Status Risk Notes Problem Acquired hallux valgus (29546658) Hallux valgus (acquired), left foot (M20.12) Active confirmed Problem Acquired hallux valgus (76567513) Hallux valgus (acquired), right foot (M20.11) Active confirmed Plan Of Treatment Pending Test Test Name Order Date X ray : Foot, left 3V 09/14/2021 X ray : Foot, right 3V 09/14/2021 Insurance Providers Payer Name Payer Address Payer Phone Subscriber Number Group Number Insured Name Patient Relationship to Insured Coverage Start Date Coverage End Date Medicare National Govt Sv[employer] [address] [place] [address] [id number] Angela Zuleta Self - patient is the insured [employer] [address] [place] [address] [phone] [id number] Angela Zuleta Self - patient is [...]
--- OUTSIDE RECORDS SUMMARY | 2024-06-25 14:01 | XMS_ITS ---
Author Organization [employer] Address [address] [place] [address] Care Team Providers Care Aitchbone Breaker Name Role Phone CHITRA HODGSON, SUMAN Primary Care Provider Caitlyn Dyer Unavailable [phone] REASON FOR VISIT HR MEDICARE PE Encounters Encounter Location Date Provider Diagnosis [facility] [employer] [address] [place] [address] 05/24/2023 Caitlyn Santana Plan Of Treatment Next Appt Details Provider Name:Caitlyn cardoza, 07/10/2024 01:00:00 PM, [address], [address], [place], [address], Progress Notes * MCKAY JONESDOB:1945 (78 yo F)Acc No.[id number]:05/24/2023 PROGRESS NOTES Patient:?KAREN MCKAY Appointment Provider:?Caitlyn cardoza M.D. :1945???Age:77 Y???Sex:Female D ate:05/24/2023 Address: [address] [place], , [id number] Pcp:SUMAN BUENROSTRO MD Subjective: * Chief Complaints: * ???1. HR MEDICARE PE. * Medical History:? Objective: * Vitals:? Assessment: Plan: * Treatment: * Images: Billing Information: * Visit Code:? * Procedure Codes:? * Electronic signature of Markus Santana MD on 06/25/2024 at 02:00 PM EDT Sign off status: Pending * Appointment Provider:?Caitlyn Santana M.D. Date:?05/24/2023 Generated for Alpa porras/Kristen/Sharon on:?06/25/2024 02:00 PM EDT
--- OUTSIDE RECORDS SUMMARY | 2024-06-25 14:01 | XMS_ITS | Clinical Summary ---
Author Organization [facility] [address] [facility] [address] Address [address] [place] [address] Phone Care Team Providers Care Finance Specialist Name Role Phone Layne Martinez MD Primary Care Provider Allergies Active Allergy Reactions Criticality Noted Date Comments Adalat Headache 06/12/2013 Amoxicillin Itching,Rash Low 06/12/2013 Lactose Nausea And Vomiting Low 06/12/2013 Other Reaction(s): OTHER Lactose intolerant Other Itching 08/22/2023 Tegaderm Ag Mesh 2 x2 [Wound Dressings]Rash/[place] titis Sulfamethoxazole-Trime thoprim 08/26/2021 Other Reaction(s): Flushing, feeling of warmth Medications meclizine (ANTIVERT) 25 mg tablet Take by mouth as needed. Active cyanocobalamin (VITAMIN B-12) 1,000 mcg tablet Take 1 tablet (1,000 mcg total) by mouth 1 (one) time each day. Active omeprazole (PriLOSEC) [address] capsule Take 1 capsule (20 mg total) by mouth 1 (one) time each day. 4 Active ursodioL (ACTIGALL) 300 mg capsule Take 1 capsule (300 mg total) by mouth 3 (three) times a day. 4 Active mirabegron (MYRBETRIQ) 25 mg 24 hr [...] capsule Take 2 Tabs by mouth daily. 4 Active aspirin 81 mg EC tablet Take 1 tablet (81 mg total) by mouth 1 (one) time each day. Active UNABLE TO FIND Glucosamine-C hondroit-Vit C-Mn (GLUCOSAMINE CHONDR 1500 COMPLX OR), Take by mouth 2 times daily. Active MULTIVITAMIN ORAL Take by mouth 1 (one) time each day. Active levothyroxine (SYNTHROID, LEVOTHROID) 88 mcg tablet TAKE 1 TABLET BY MOUTH EVERY DAY 90 tablet 1 5 Active losartan (COZAAR) 50 mg tabletIndication s:Essential (primary) hypertension TAKE 1 TABLET BY MOUTH TWICE A DAY 180 tablet 1 5 Active ciprofloxacin (CIPRO) 250 mg tablet Take 1 tablet (250 mg total) by mouth 2 (two) times a day for 7 days. 14 each 5 06/28/19 25 Active dilTIAZem (CARDIZEM) 90 mg immediate release tablet TAKE 1 TABLET BY MOUTH EVERY DAY 90 tablet 5 06/21/19 25 Discontin ued(Thera py completed ) Active Problems Problem Noted Date Diagnosed Date Aortic regurgitation 03/17/2019 Overview (01/16/2024): Mild to moderate on echo 01/02/2019, normal EF Aortic dilatation (CMS/HCC V24) 05/08/2016 Overview (01/16/2024): Mild on echo 12/29/15 [...] D deficiency disease 06/20/2013 Alcoholism in remission ([facility] V24, [facility] V2 8) 06/12/2013 Overview (01/16/2024): Remission since 1983 Cholelithiasis 06/12/2013 Overview (01/16/2024): Seen on cat scan 2012 Hiatal hernia with gastroesophageal reflux 06/12 Overview (01/16/2024): Multiple endoscopies with dilatation per pt, no Barett's, Hypertension 06/12/2013 Hypothyroidism 06/12/2013 Overview (01/16/2024): 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[facility] V24) 06/12/2013 Overview (01/16/2024): Historic, not in transferred records Myasthenia gravis ([facility] V24, [facility] V28) 02/2013 Overview (01/16/2024): Dr Duncan, Dx 12/2012, Diplopia , no thymus on CT scan 2012 Osteopenia 06/12/2013 Overview (01/16/2024): Prior osteoporosis 2001, was on fosamax for 5 yrs, Primary biliary cholangitis ([facility] V24, CMS/ C V28) 06/12/2013 Overview (01/16/2024): Dr Pleet, Raynaud disease 06/12/2013 Scleroderma (CMS/HCC V24, CMS/HCC V28) 4 Overview (01/16/2024): Dr. Hollins Echo 12/28/15 with normal EF, mild diastolic dysfunction, right ventricle mildly dilated, ascending aorta mildly dilated Surgical menopause 06/12/2013 Overview (01/16/2024): Age 34, on oral hormones until age 55, now vagifem, Dr Buitrago, . 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 [address] [place] [phone] Yessy Holden MD Acute cystitis with hematuria (Primary Dx) 06/19/2024 Telephone Adult [facility] [address] [place] [phone] Layne Martinez MD UTI 05/08/2024 Telephone Pulmonolgy - [place] [address] [place] [phone] Riccardo Garay MD 04/01/2024 1:00 PM EST Office Visit [facility] [address] [place] [address] Layne Martinez MD Primary hypertension (Primary Dx); Acquired hypothyroidism; Scleroderma (CMS/HCC V24, CMS/HCC V28); Raynaud's disease without gangrene; Primary biliary cirrhosis (CMS/HCC V24, CMS/HCC V28); OAB (overactive bladder) from Last 3 Months [...] care for your loved ones. For example, child care leader or elderly care for an older adult? [...] Sign Reading Time Taken Comments Blood Pressure 146/76 06/20/2024 11:20 AM EDT Pulse 68 06/20/2024 11:20 AM EDT Temperature 36.8 ??C (98.2 ??F) 06/20/2024 11:20 AM E DT Respiratory Rate 16 04/01/2024 1:02 PM EST Oxygen Saturation - - Inhaled Oxygen Concentration - - Weight 43.2 kg (95 lb 3.2 oz) 06/20/2024 11:20 A M EDT Height 155 cm (5' 1.02 ) 04/01/2024 1:02 PM EST Body Mass Index 17.97 04/01/2024 1:02 PM EST Plan of Treatment Upcoming Encounters Date Type Department Care Team (Late st Contact Info) Description 07/30/2024 1:30 PM EDT Office Visit Adult Medicine - [place] [address] [place] [address] Abdullahi Higgins PA [address] [place] [address] 08/04/2024 3:45 PM EDT Office Visit Pulmonolgy - [place] [address] [phone] Riccardo Garay MD [address] [facility] [address] [place] [address] Health Maintenance Due Date Last Done Comments Hepatitis A Vaccines (1 of 2 - Risk 2-dose series) 11/11/1962 Zoster Vaccines (1 of 2) 11/11/1962 Hepatitis B Vaccines (1 of 3 - Risk 3-dose series) 2003 RSV Immunization Adult Patients (1 - 1-dose 75+ series) 11/11/2018 Medicare Annual Wellness Visit 01/21/2022 Osteoporosis Screening (Bone Density Screening) 01/21/2022 COVID-19 Vaccine (8 - Moderna risk season) 2024 12/28/2023, 11/28/2022, 01/09/2022, Additional history exists Depression Screening 04/01/2025 04/01/2024 Falls Risk Assessment 04/01/2025 04/01/2024 Hypertension/CHF/CAD Annual BMP Blood Test 04/01/2025 04/01/2024, 11/13/2023, 11/13/2023 Social Influencers of Health Screening 04/01/2025 04/01/2024 DTaP,Tdap,and Td Vaccines (4 - Td or Tdap) 12/04/2026 12/04/2016, 08/18/2010, 02/12/1997 Cholesterol Screening (Lipid Panel) 04/01/2029 04/01/2024, 05/03/2023 Pneumococcal Vaccine: 50+ Years Completed 07/01/2014, 08/10/2010, 08/08/2010 Influenza Vaccine Completed 10/23/2023, , 02/23/2022, Additional history exists HIB Vaccines Aged Out [...] age to complete this topic Meningococcal B Vaccine Aged Out No l onger eligible based on patient's age to complete this topic RSV Immunization Patients Under 20 months Aged Out No longer eligible based on patient's age to complete this topic Varicella Vaccines Aged Out No longer eligible based on patient's age to complete this topic Procedures Procedure Name Priority Date/Time Associated Diagnosis Comments POC URINE NON-AUTO W/O MICRO Routine 06/20/2024 11:41 AM EDT Acute cystitis with hematuria CULTURE URINE Routine 06/20/2024 11:41 AM EDT Acute cystitis with hematuria THYROID STIMULATING HORMONE WITH REFLEX TO FREE T4 AND FREE T3 Routine 04/01/2024 2:11 PM EST Primary hypertension Acquired hypothyroidism Scleroderma (CMS/HCC V24, CMS/HCC V28) Raynaud's disease without gangrene Primary biliary cirrhosis (CMS/HCC V24, CMS/HCC V28) OAB (overactive bladder) LIPID PANEL WITH REFLEX TO DIRECT LDL Routine 04/01/2024 2:11 PM EST Primary hypertension Acquired hypothyroidism Scleroderma (CMS/HCC V24, CMS/HCC V28) Raynaud's disease without gangrene Primary biliary cirrhosis (CMS/HCC V24, CMS/HCC V28) OAB (overactive bladder) COMPREHENSIVE METABOLIC PANEL Routine 04/01/2024 2:11 PM EST Primary hypertension Acquired hypothyroidism Scleroderma (CMS/HCC V24, CMS/HCC V28) Raynaud's disease without gangrene Primary biliary cirrhosis (CMS/HCC V24, CMS/HCC V28) OAB (overactive bladder) from Last 3 Months Results * (ABNORMAL) POC Urine Non-Auto W/O Micro (06/20/2024 11:41 AM EDT) Glucose UA POC Negative Negative, Trace mg/dL Leukocytes UA POC Negative Negative Nitrite UA POC Negative Negative Urobilinogen UA POC 0.2 E.U./dL mg/dL Protein UA POC Negative Negative, >=300 mg/dL PH UA POC 5.0 Blood UA POC 1+(A) Negative, Large Specific [place] UA POC 1.010 Ketones UA POC Negative Negative, Trace Bilirubin UA POC Negative Negative, Small Urine Urine specimen obtained by clean catch procedure / Unknown 06/20/2024 11:41 AM EDT Yessy Holden MD POINT OF CARE TEST ENTER/EDIT ORDERABLES Final Result * (ABNORMAL) Culture urine (06/20/2024 11:41 AM EDT) Culture, Urine >100,000 CFU/mL Escherichia coli(A) MEET 06/22/2024 8:09 AM EDT [facility] Urine Urine specimen obtained by clean catch procedure / Unknown Non-blood Collection / Unknown 06/20/2024 11:41 AM EDT 06/20/2024 11:41 AM EDT Narrative Organism Antibiotic Method Susceptibility Escherichia coli Amoxicillin/Clavulanate MEET <=2 ug/ml: Susceptible Escherichia coli Ampicillin/Sulbactam MEET <=2 ug/ml: Susceptible Escherichia coli Piperacillin/Tazobactam MEET <=4 ug/ml: Susceptible Escherichia coli Cefazolin (Urine) MEET 2 ug/ml: Susceptible Escherichia coli Cefoxitin MEET <=4 ug/ml: Susceptible Escherichia coli Ceftazidime MEET <=0.5 ug/ml: Susceptible Escherichia coli Ceftriaxone MEET <=0.25 ug/ml: Susceptible Escherichia coli Cefepime MEET <=0.12 ug/ml: Susceptible Escherichia coli Meropenem MEET <=0.25 ug/ml: Susceptible Escherichia coli Amikacin MEET 2 ug/ml: Susceptible Escherichia coli Gentamicin MEET <=1 ug/ml: Susceptible Escherichia coli Ciprofloxacin MEET <=0.06 ug/ml: Susceptible Escherichia coli Levofloxacin MEET <=0.12 ug/ml: Susceptible Escherichia coli Nitrofurantoin MEET <=16 ug/ml: Susceptible Escherichia coli Trimethoprim/Sulfamethoxazole MEET <=20 ug/ml: Susceptible Yessy Holden MD LAB MICROBIOLOGY - GENERAL ORDERABLES Final Result Performing Organization Address [facility]/ZIP Co de Phone Number [facility] [address] [place] [address], [place] [phone] * Thyroid stimulating hormone with reflex to free t4 and free t3 (04/01/2024 2:11 PM EST) TSH 3.14 0.40 - 4.00 mcIU/mL LAB CHEMISTRY METHOD 04/01/2024 8:06 PM EST [facility] Blood Venous blood specimen / Unknown Venipuncture / Unknown 04/01/2024 2:11 PM EST 04/01/2024 2:11 PM EST Layne Martinez MD LAB BLOOD ORDERABLES F inal Result Performing Organization Address [facility]/ZIP Co de Phone Number [facility] [address] [place] [address], [place] [phone] * Lipid panel with reflex to direct LDL (04/01/2024 2:11 PM EST) Cholesterol 119 0 - 200 mg/dL LAB CHEMISTRY METHOD 04/01/2024 7:11 PM EST [facility] Triglycerides 117 0 - 150 mg/dL LAB CHEMISTRY METHOD 04/01/2024 7:11 PM EST [facility] HDL 54 >=40 mg/dL LAB CHEMISTRY METHOD 04/01/2024 7:11 PM EST [facility] LDL Calculated 42 0 - 100 mg/dL LAB CHEMISTRY METHOD 04/01/2024 7:11 PM [facility] VLDL Cholesterol Joni 23.4 mg/dL LAB CHEMISTRY METHOD 04/01/2024 7:11 PM [facility] Non HDL Chol. (LDL+VLDL) 65 <145 mg/dL LAB CHEMISTRY METHOD 04/01/2024 7:11 PM [facility] Chol/HDL Ratio 2.2 0.0 - 4.4 LAB CHEMISTRY METHOD 04/01/2024 7:11 PM [facility] Blood Venous blood specimen / Unknown Venipuncture / Unknown 04/01/2024 2:11 PM EST 04/01/2024 2:11 PM EST Layne Martinez MD LAB BLOOD ORDERABLES F inal Result [facility] [address] [place] [address], [place] [phone] * (ABNORMAL) Comprehensive metabolic panel (04/01/2024 2:11 PM EST) Sodium 140 133 - 145 mmol/L LAB CHEMISTRY METHOD 04/01/2024 7:22 PM [facility] Potassium 4.3 3.5 - 5.5 mmol/L LAB CHEMISTRY METHOD 04/01/2024 7:22 PM [facility] Chloride 116(H) 96 - 110 mmol/L LAB CHEMISTRY METHOD 04/01/2024 7:22 PM [facility] CO2 24 21 - 32 mmol/L LAB CHEMISTRY METHOD 04/01/2024 7:22 PM [facility] Anion Gap 0(L) 3 - 11 LAB CHEMISTRY METHOD 04/01/2024 7:22 PM [facility] Glucose 95 70 - 100 mg/dL LAB CHEMISTRY METHOD 04/01/2024 7:22 PM [facility] BUN 30(H) 5 - 25 mg/dL LAB CHEMISTRY METHOD 04/01/2024 7:22 PM [facility] Creatinine 1.27(H) 0.50 - 1.10 mg/dL LAB CHEMISTRY METHOD 04/01/2024 7:22 PM [facility] eGFR 43(L) >=60 mL/min/1. 73m2 LAB CHEMISTRY METHOD 04/01/2024 7:22 PM [facility] Comment:Calculation based on the??Chronic Kidney Disease Epidemiology Collaboration (CKD-EPI) equation refit??without adjustment for race. BUN/Creatinine Ratio 23.6 LAB CHEMISTRY METHOD 04/01/2024 7:22 PM [facility] Calcium 9.5 8.5 - 10.5 mg/dL LAB CHEMISTRY METHOD 04/01/2024 7:22 PM [facility] AST (SGOT) 14 10 - 42 unit/L LAB CHEMISTRY METHOD 04/01/2024 7:22 PM [facility] ALT (SGPT) 14 10 - 60 unit/L LAB CHEMISTRY METHOD 04/01/2024 7:22 PM [facility] Alkaline Phosphatase 77 42 - 121 unit/L LAB CHEMISTRY METHOD 04/01/2024 7:22 PM [facility] Total Protein 6.7 6.0 - 8.0 g/dL LAB CHEMISTRY METHOD 04/01/2024 7:22 PM EST [facility] Albumin 3.4 3.2 - 5.0 g/dL LAB CHEMISTRY METHOD 04/01/2024 7:22 PM EST [facility] Total Bilirubin 0.3 0.0 - 1.4 mg/dL LAB CHEMISTRY METHOD 04/01/2024 7:22 PM EST [facility] Blood Venous blood specimen / Unknown Venipuncture / Unknown 04/01/2024 2:11 PM EST 04/01/2024 2:11 PM EST Layne Martinez MD LAB BLOOD ORDERABLES F inal Result [facility] [address] [place] [address], [place] [phone] from Last 3 [place] [id number] MEDICARE [facility] Care Teams Finance Specialist Relationship Specialty Start Date End Date Layne Martinez MD [address] [place] [address] PCP - General 08/17/23
--- OUTSIDE RECORDS SUMMARY | 2024-06-25 14:01 | XMS_ITS | Patient Health Record ---
Author Organization [facility] Address [address] [place] [address] Care Team Providers Care Dispatcher Service Name Role Phone CHITRA HODGSON, SUMAN Primary Care Provider Caitlyn Dyer Unavailable [phone] Allergies Allergen (clinical drug ingredient) Drug/Non Drug [...] 90 Active Flonase Allergy Relief Not-Taking pyRIDostigmine [place] ER 180 MG 2 tablet Orally Twice [...] Status Risk Notes Problem Postmenopausal atrophic vaginitis (25887991) Postmenopausal atrophic vaginitis (N95.2) Active confirmed Problem Urinary incontinence (140284062) Unspecified urinary incontinence (R32) Active confirmed Problem Cancer of skin of lower limb, basal cell (139790394) Basal cell carcinoma of skin of right lower limb, including hip (C44.712) Active confirmed Problem Basal cell carcinoma of skin (842166398) Basal cell carcinoma of skin, unspecified (C44.91) Active confirmed Problem Cholelithiasis without obstruction (60769016) Calculus of gallbladder without cholecystitis without obstruction (K80.20) Active confirmed Problem Functional urinary incontinence (255204023) Functional urinary incontinence (R39.81) Active confirmed Problem Hypothyroidism (23740208) Unspecified hypothyroidism (244.9) Active confirmed Major Problem Raynaud's disease (disorder) (152803754) Raynaud's syndrome (443.0) Active confirmed Diag Problem Benign essential hypertension (5090845) Essential hypertension, benign (401.1) Active confirmed Major Problem Esophageal reflux (569639194) Esophageal reflux (530.81) Active confirmed Major Problem Menopausal symptom (97518414) Symptomatic menopausal or female climacteric states (627.2) Active confirmed Major Problem Postmenopausal atrophic vaginitis (88815865) Postmenopausal atrophic vaginitis (627.3) Active confirmed Diag Problem Systemic sclerosis (49682839) Systemic sclerosis (710.1) Active confirmed Diag Problem Gynecological examination normal (022266009066748) Routine gynecological examination (V72.31) Active confirmed Major Problem Screening for malignant neoplasm of colon (690681681) Special screening for malignant neoplasms, colon (V76.51) Active confirmed Major Vital Signs Temperature 97.3 degrees Fahrenheit 07/06/2023 Blood pressure diastolic 58 mm Hg 07/06/2023 Height 60.5 in 07/06/2023 Blood pressure systolic 126 mm Hg 07/06/2023 Weight 100 lbs 07/06/2023 BMI 19.21 kg/m2 07/06/2023 Encounters Encounter Location Date Provider Diagnosis [facility] [address] [place] [address] 07/06/2023 Caitlyn Santana Encounter for gynecological examination (general) (routine) without abnormal findings Z01.419 ; Encounter for screening mammogram for malignant neoplasm of breast Z12.31 ; Unspecified urinary incontinence R32 and Postmenopausal atrophic vaginitis N95.2 [facility] [address] [place] [address] 07/17/2023 Caitlyn Santana Assessments Encounter Date Diagnosis [...] IF SHE WANTS TO SEE UROGYNECOLOGY AT [facility]. 07/06/2023 Postmenopausal atrophic vaginitis (ICD-10 [...] Screening 04/05/2022 Next Appt Details Provider Name:Caitlyn Castillo jasonuche, 07/10/2024 01:00:00 PM, [address] [facility], [place], [address], Insurance Providers Payer Name Payer Address Payer Phone Subscriber Number Group Number Insured Name Patient Relationship to Insured Coverage Start Date Coverage End Date MEDICARE [address] [facility] [place], [place] [id number] MCKAY JONES Self - patient is the insured [facility] IN[employer]MN[employer] PLAN [address] [place], [place] [id number] MCKAY JONES Self - patient is the [...]
== END 2024-06-25 14:47 | disposition home or self-care (01) ==
LOC: HO.RHES 13:56
PROVIDERS: PCP Student in an Organized Health Care Education/Training Program; Visit Provider Internal Medicine Rheumatology
DX: M34.9 Systemic sclerosis, unspecified (principal); I73.00 Raynaud's syndrome without gangrene; R26.89 Other abnormalities of gait and mobility
CPT/HCPCS: 99214; G2211

== ENCOUNTER → 2024-06-25 13:56 | Outpatient (BNVA) | payer MEDICARE, OTHER, SELFPAY | PROVIDERS: PCP Student in an Organized Health Care Education/Training Program; Visit Provider Internal Medicine Rheumatology | DX: M34.9 Systemic sclerosis, unspecified (principal); I73.00 Raynaud's syndrome without gangrene; R26.89 Other abnormalities of gait and mobility | CPT/HCPCS: 99212 ==

== ENCOUNTER 2024-09-30 13:27 | Outpatient (AMB) | payer MEDICARE, OTHER, SELFPAY ==
--- NOTE | 2024-09-30 13:41 | MHC.OFFVIS ---
Vital Signs 09/30/24 13:42 Height 5 ft 1 in Weight 93 lb BMI 17.6 BP 130/80 Blood Pressure Location Lt brachial Position Sitting Intake Visit Reasons: 3 Months Intake Note: Patient presents today for follow up on arthralgia. Accompanied by: Self / Same As Patient Allergies amoxicillin Allergy (Mild, Verified 09/30/24 13:42) Hives sulfamethoxazole (From Bactrim) Adverse Reaction (Intermediate, Verified 09/30/24 13:42) stomach pain trimethoprim (From Bactrim) Adverse Reaction (Intermediate, Verified 09/30/24 13:42) stomach pain nifedipine (From Procardia) Adverse Reaction (Mild, Verified 09/30/24 13:42) Headache lactose intolerant Adverse Reaction (Mild, Uncoded 03/13/24 10:07) Stomach Upset tegaderm tape Adverse Reaction (Mild, Uncoded 03/13/24 10:07) Rash HPI HPI 3 Months: Details: No change in raynauds flares with sildenafil. AC affects her hands. She feels colds. She uses gloves when needed including when she uses a freezer. Her niece usually accompanies her when she is grocery shopping and helps her with obtaining items from the freezer. AC is set to 77F. She has fan on to circulate air. toes cramp at night. Uses tonic water with quinine at night when needed, which helps. She is having intermittent difficulty with swallowing to food. She has stiffness of her right 3rd PIP in the morning, with self resolves. [facility] Medical History Varicose veins of both lower extremities Aortic regurgitation Aortic dilatation Diastolic dysfunction Right ventricular dilation Myasthenia gravis COPD (chronic obstructive pulmonary disease) Ocular myasthenia Lactose intolerance Osteopenia Veronica's disease Subclavian artery thrombosis DVT (deep venous thrombosis) History of colonic diverticulitis Primary biliary cirrhosis GERD (gastroesophageal reflux disease) Sclerodactyly Raynaud's phenomenon Inflammatory bowel disease Hypertension Surgical History History of cataract surgery H/O total colectomy H/O total hysterectomy H/O basal cell carcinoma excision Physical Exam Vital Signs: Last Vital Signs BP 130/80 09/30/24 13:42 BMI result Body Mass Index 17.6 Const Other: General: Comfortable CVS: RRR Respiratory: clear to auscultation bilaterally. Good respiratory effort Skin: Sclerodactyly present. Skin is also tight on dorsal feet bilaterally. Multiple fingers on right hand have bluish color to fingertips. No digital ulcerations. MSK: [place]berden nodes present. No tender joints. No synovitis. Normal range of motion of upper extremities and lower extremities. Bilateral ankle edema right worse than left. Assessment & Plan Assessment & Plan (1) Systemic sclerosis with limited cutaneous involvement: Comment: Cutaneous disease is controlled without DMARD therapy. Raynaud's syndrome is not controlled (see below). She is tolerating sildenafil. She has experienced intermittent dysphagia to solids relieved with drinking warm water. Rheumatology history: Positive anticentromere antibody, URBAN, sclerodactyly, Raynaud's phenomena, possible history of strictures requiring dilatation from GI (unclear if esophageal dysmotility played a role in the past). Code(s): M34.9 - Systemic sclerosis, unspecified Category: Medical Plan: Barium swallow ordered Return to clinic in 3 months (2) Raynaud's phenomenon: Comment: Uncontrolled. No change with the addition of sildenafil. She has tolerated a sildenafil without side effects. Blood pressure is normotensive. Rheumatology history: Nifedipine caused side effect of ankle edema. Failed diltiazem. Sildenafil 06/2024- Code(s): I73.00 - Raynaud's syndrome without gangrene Category: Medical Qualifiers: Raynaud?s-associated gangrene presence: without gangrene Qualified Code(s): I73.00 - Raynaud's syndrome without gangrene Plan: Increased frequency of sildenafil from 20 mg b.i.d. to t.i.d. I recommend that she take each dose 4-6 hours apart during the day when her symptoms are most active. She will call office in 1 month if there is no change with her symptoms, then I will increase sildenafil to 40 mg b.i.d. Continue wearing gloves when exposed to cold including grocery shopping Return to clinic in 3 months (3) Muscle cramp: Code(s): R25.2 - Cramp and spasm Category: Medical Plan: Labs ordered to rule out electrolyte disturbance Return to clinic in 3 months (4) Dysphagia: Code(s): R13.10 - Dysphagia, unspecified Category: Medical Plan: Barium swallow ordered Return to clinic in 3 months Orders: Orders Calcium Today R25.2 - Cramp and spasm Magnesium Today R25.2 - Cramp and spasm Potassium Today R25.2 - Cramp and spasm [place] barium swallow Today R13.10 - Dysphagia, unspecified Phosphorus Today R25.2 - Cramp and spasm Sodium Today R25.2 - Cramp and spasm Medications: Changed From sildenafil (pulm.hypertension) 20 mg PO BID 60 tabs 11RF To sildenafil (pulm.hypertension) Increase dose 20 mg PO TID 90 tabs 11RF Coding Level of Care Code Est Pt Level 4 (21812) Complex EM visit Add On G2211 Diagnoses Systemic sclerosis with limited cutaneous involvement M34.9 Raynaud's phenomenon without gangrene I73.00 Raynaud?s-associated gangrene presence: without gangrene Muscle cramp R25.2 Dysphagia R13.10
[2024-09-30 13:42] VITALS: BP 130/80; BMI 17.6
--- OUTSIDE RECORDS SUMMARY | 2024-09-30 14:43 | XMS_ITS ---
Author Name [facility] Organization Unknown Care Team Organization Name Specialty Phone Email Start Date End Da te [facility] Teodoro Ventura DO Primary Care 07/21/202209/12 [facility] Termed, PROVIDER Primary Care 12/20/202109/12
--- OUTSIDE RECORDS SUMMARY | 2024-09-30 14:43 | XMS_ITS | Clinical Summary ---
Author Organization [facility] [address] [facility] lding Address [address] [place] [address] Phone Care Team Providers Care Crystallographer Name Role Phone Layne Martinez MD Primary Care Provider Allergies Active Allergy Reactions Criticality Noted Date Comments Adalat Headache 06/12/2013 Amoxicillin Itching,Rash Low 06/12/2013 Lactose Nausea And Vomiting Low 06/12/2013 Other Reaction(s): OTHER Lactose intolerant Other Itching 08/22/2023 Tegaderm Ag Mesh 2 x2 [Wound Dressings]Rash/[place] titis Sulfamethoxazole-Trime thoprim 08/26/2021 Other Reaction(s): Flushing, [...] mg 24 hr tablet Take by mouth. Ac tive estradioL (ESTRACE) 0.01 % (0.1 mg/gram) vaginal [...] time each day. Active UNABLE TO FIND Glucosamine-Ch ondroit-Vit C-Mn (GLUCOSAMINE CHONDR 1500 COMPLX OR), Take by mouth 2 times daily. Active MULTIVITAMIN ORAL Take by mouth 1 (one) time each day. Active losartan (COZAAR) 50 mg tabletIndications :Essential (primary) hypertension TAKE 1 TABLET BY MOUTH TWICE A DAY 180 tablet 1 5 Active sildenafil (REVATIO) 20 mg tablet Take 1 tablet (20 mg total) by mouth 2 (two) times a day. Active levothyroxine (SYNTHROID, LEVOTHROID) 88 mcg tablet TAKE 1 TABLET BY MOUTH EVERY DAY 90 tablet 1 5 Active Active Problems Problem Noted Date Diagnosed Date [...] D deficiency disease 06/20/2013 Alcoholism in remission ([facility] V24, [facility] V2 8) 06/12/2013 Overview (01/16/2024): Remission since 1983 Cholelithiasis 06/12/2013 Overview (01/16/2024): Seen on cat scan 2012 Hiatal hernia with gastroesophageal reflux 06/12 Overview (01/16/2024): Multiple endoscopies with dilatation per pt, no Barett's, Hypertension 06/12/2013 Hypothyroidism 06/12/2013 Overview (01/16/2024): 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[facility] V24) 06/12/2013 Overview (01/16/2024): Historic, not in transferred records Myasthenia gravis ([facility] V24, [facility] V28) 02/2013 Overview (01/16/2024): Dr Duncan, Dx 12/2012, Diplopia , no thymus on CT scan 2012 Osteopenia 06/12/2013 Overview (01/16/2024): Prior osteoporosis 2001, was on fosamax for 5 yrs, Primary biliary cholangitis ([facility] V24, [facility] V28) 06/12/2013 Overview (01/16/2024): Dr Aquino, Raynaud disease 06/12/2013 Scleroderma ([facility] V24, [facility] V28) 4 Overview (01/16/2024): Dr. Hollins Echo 12/28/15 with normal EF, mild diastolic dysfunction, right ventricle mildly dilated, ascending aorta mildly dilated Surgical menopause 06/12/2013 Overview (01/16/2024): Age 34, on oral hormones until age 55, now vagifem, Dr Buitrago, . 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 V24, [facility] V28) (Primary Dx); Pulmonary nodule 07/30/2024 1:30 PM EDT Office Visit Adult Medicine [facility] [address] [place] [id number] Abdullahi Higgins PA Medicare annual wellness visit, subsequent (Primary Dx); Myasthenia gravis ([facility] V24, [facility] V28); Stage 3b chronic kidney disease ([facility] V24, [facility] V28); Scleroderma ([facility] V24, [facility] V28); Primary hypertension; Hypothyroidism, unspecified type; Underweight; Urinary incontinence, unspecified type; Need for pneumococcal 20-valent conjugate vaccination; Encounter for immunization from Last 3 Months Immunizations Name Administration Dates Next Due Influenza Quadravalent, 0.5m l (Fluad) 65yo and older 11/23/2021,11/15/2019 Influenza Whole 11/26/2007,12/14/2005,11/29/2004 Influenza trivalent, 0.5mL ( Fluad) 65yo and older 10/23/2023,11/02/2022,11/16/2020,11/14,11/19/2018,11/01/2017,11/06/2016 ,11/05/2014 Influenza trivalent, 0.5mL ( Fluzone High-dose) 65yo and older 10/23/2023,11/02/2022,11/16/2020,11/19,11/01/2017,11/06/2016,11/05/2014 Influenza trivalent, 0.5mL, preservative free (Fluarix; FluLaval; Fluzone) ages 6mo and older (Afluria) 3 years and older 11/11/2015,12/09/2013 Influenza trivalent, with pr eservative (Fluzone; Afluria) 6mo and older 11/11/2015,12/09/2013,12/14/2011,02/16,12/16/2009 Influenza, Unspecified 02/23/2022,2007,12/14/2005,11/29 Moderna SARS-CoV-2 COVID-19, mRNA, LNP-S, preservative free 08/12/2021,01/26/2021,01/25/2021 Pneumococcal conjugate 13 va lent (Prevnar 13, PCV13) 2mo and older 07/01/2014 Pneumococcal conjugate 20 va lent (Prevnar 20, PCV 20) 2mo and older 07/30/2024 Pneumococcal polysaccharide 23 valent (Pneumovax 23) 2yo and older 08/10/2010 Td Tetanus diptheria (Tdvax) 7yo and older 08/18/2010,02/12/1997 Td, Unspecified 08/18/2010,02/12/1997 Tdap Tetanus diptheria acell ular pertussis [...] COMMENT: varicose vein UPPER GASTROINTESTINAL ENDOSCOPY PROCEDURE: WI UPPER GI ENDOSCOPY PERFORMED; COMMENT: historic , multiple with dilitation, neg barretts APPENDECTOMY PROCEDURE: WI APPENDECTOMY HYSTERECTOMY PROCEDURE: HISTORICAL HYSTERECTOMY COLONOSCOPY PROCEDURE: [...] you may not have stable housing? No 07/30/2024 Food Access & Nutrition Answer Date Rec orded Do you have access to a vari ety of food including fruits and vegetables? Yes 07/30/2024 Access to Healthcare Answer Date Record ed Within the last 3 months, ho jarod many times did you visit the emergency department for your medical care? 0 07/30/2024 Health Literacy Answer Date Recorded How often do you need to hav e someone help you when you read instructions, pamphlets, or other written material from your doctor or pharmacy? Sometimes 07/30/2024 Caregiver: How often do you need to have someone help you when you read instructions, pamphlets, or other written material from your doctor or pharmacy? Not on file 07/30/2024 Financial Risk Answer Date Recorded How hard is it for you to pa y for the very basics like food, housing, medical care, and air conditioning / heating? Not very hard 07/30/2024 Transportation Answer Date Recorded Has the lack of transportati on kept you from meetings, work, or from getting things needed for daily living? No Has the lack of transportati on kept you from medical appointments or from getting medications? No 07/30/2024 Social Isolation Answer Date Recorded How often do you feel lonely or isolated from th ose around you? Never 07/30/2024 Food Risk Answer Date Recorded Within the past 12 months we worried whether our food would run out before we got money to buy more. Never true 07/30/2024 Within the past 12 months th e food we bought just didn't last and we didn't have money to get more. Never true 07/30/2024 Dependent Care Answer Date Recorded Do you need help finding or paying for care for your loved ones. For example, child caregiver or elderly care for an older adult? No 07/30/2024 Education Answer Date Recorded Do you think completing more education or training, like finishing a GED, going to college, or learning a trade, would be helpful for you? N/A 07/30/2024 Employment and Income Answer Date Recor ded During the last four weeks, have you been actively looking for work? No 07/30/2024 Living Situation Answer Date Recorded What is your living situation? 0 07/30/2024 Comments No Sex and Gender Information Value Date Recorded Sex Assigned at Not on file Legal Sex Female 6:31 AM EST Gender Identity Not on file Sexual Orientation Not on file Obstetrics History Last Filed Vital Signs Vital Sign Reading Time Taken Comments Blood Pressure 100/52 08/12/2024 2:34 PM EDT Pulse 73 08/12/2024 2:34 PM EDT Temperature 36.3 C (97.4 F) 08/12/2024 2:34 PM EDT Respiratory Rate 16 08/12/2024 2:34 PM EDT Oxygen Saturation 100% 08/12/2024 2:34 PM EDT Inhaled Oxygen Concentration - - Weight 42.2 kg (93 lb) 08/12/2024 2:34 PM EDT Height 154.9 cm (5' 1 ) 08/12/2024 2:34 PM EDT Body Mass Index 17.57 08/12/2024 2:34 PM EDT Plan of Treatment Upcoming Encounters Date Type Department Care Team (Late st Contact Info) Description 11/19/2024 1:00 PM EDT Ancillary Procedure Pulmonolgy - [place] [address] [place] [address] 12/02/2024 2:30 PM EDT Office Visit Adult Medicine - [place] [address] [place] [address] Layne Martinez MD [address] [place] [address] 02/16/2025 1:15 PM EST [facility] [address] [place] [address] Riccardo Garay MD [address] [facility] [address] [place] [address] Health Maintenance Due Date Last Done Comments Hepatitis A Vaccines (1 of 2 - Risk 2-dose series) 11/11/1964 Zoster Vaccines (1 of 2) 11/11/1962 Hepatitis B Vaccines (1 of 3 - Risk 3-dose series) 2003 RSV Immunization Adult Patients (1 - 1-dose 75+ series) 11/11/2018 Osteoporosis Screening (Bone Density Screening) 01/21/2022 COVID-19 Vaccine (9 - Moderna risk season) 2024 12/28/2023, 11/28/2022, 01/09/2022, Additional history exists Influenza Vaccine (#1) 2024 , 10/23/2023, 11/02/2022, Additional history exists Hypertension/CHF/CAD Annual BMP Blood Test 04/01/2025 04/01/2024, 11/13/2023, 11/13/2023 Falls Risk Assessment 07/30/2025 07/30/2024, 025 Medicare Annual Wellness Visit 07/30/2025 07/30/2024 Social Influencers of Health Screening 07/30/2025 07/30/2024 DTaP,Tdap,and Td Vaccines (6 - Td or Tdap) 12/04/2026 12/04/2016, 08/18/2010, 08/18/2010, Additional history exists Cholesterol Screening (Lipid Panel) 04/01/2029 04/01/2024, 05/03/2023 Depression Screening Completed 07/30/2024 Pneumococcal Vaccine: 50+ Years Completed 07/30/2024, 07/01/2014, 08/10/2010 HIB Vaccines Aged Out No longer eligi [...] Procedure Name Priority Date/Time Associated Diagnosis Comments CT CHEST WO CONTRAST Routine 09/12/2024 3:18 PM EDT Pulmonary nodule COMPREHENSIVE METABOLIC PANEL Routine 04/01/2024 2:11 PM [...] OAB (overactive bladder) from Last 3 Months or Most Recently Relevant to Health Maintenance Results * CT Chest wo Contrast (09/12/2024 3:18 PM EDT) Anatomical Region Laterality Modality Body Computed Tomogra phy 09/19/2024 1:59 PM EDT Impressions 09/19/2024 2:15 PM EDT Centrilobular nodules posterior lateral left upper lobe new 5 mm nodule. Consider increasing inflammatory/infectious process versus neoplasm. Recommend follow-up chest CT in 6 months. Unchanged 6 mm groundglass nodule superior segment of the right lower lobe. -------- FINAL REPORT -------- Dictated By: Gopi Martin Dictated Date: 09/19/2024 13:59 ET Assigned Physician: Gopi Martin Reviewed and Electronically Signed By: Gopi Martin Signed Date: 09/19/2024 14:15 ET Workstation ID: [id number] Transcribed By: Self Edit Transcribed Date: 09/19/2024 13:59 ET Narrative 09/19/2024 2:15 PM EDT INDICATION: Pulmonary nodule TECHNIQUE: CT scan of the chest obtained without contrast. Scanner: [employer] revolution frontier 128 slice VCT Dose reduction technique: ASIR (Adaptive statistical iterative reconstruction) and/or AEC (automated exposure control) Dose: total exam DLP 150 mGY per cm COMPARISON: May 29, 2023 FINDINGS: Lung mon are well aerated without infiltrates or effusions. 6 mm groundglass nodule in the periphery of the right lower lobe on series 3 image 118, unchanged. Grouping of bibasilar peripheral cystic changes likely represents cystic bronchiectasis/focal inflammatory changes overall similar to the prior study. Clustered centrilobular nodules posterior laterally in the left upper lobe is overall increased from the prior study with larger nodule is not noted more superiorly measuring 5 mm and 3 mm. No thoracic lymphadenopathy. Debris noted within the mid to distal esophagus without significant distention or wall thickening. Trachea unremarkable. Heart normal in size with three-vessel coronary calcification. Similar calcific density scarring in the distal left innominate vein extending along SVC region of the right atrial appendage is unchanged. Recommend correlation with echocardiography. Ectatic changes of the thoracic aorta to 3.8 cm, unchanged. Bony structures of the thorax are within normal limits. Visualized portion upper abdomen are unremarkable. Procedure Note Gopi Martin MD - 09/19/2024 INDICATION: Pulmonary nodule TECHNIQUE: CT scan of the chest obtained without contrast. Scanner: [employer] frontier 128 slice VCT Dose reduction technique: ASIR (Adaptive statistical iterativereconstruction) and/or AEC (automated exposure control) Dose: total exam DLP 150 mGY per cm COMPARISON: May 29, 2023 FINDINGS: Lung mon are well aerated without infiltrates or effusions. 6 mmgroundglass nodule in the periphery of the right lower lobe on series 3image 118, unchanged. Grouping of bibasilar peripheral cystic changes likely represents cysticbronchiectasis/focal inflammatory changes overall similar to the priorstudy. Clustered centrilobular nodules posterior laterally in the left upper lobeis overall increased from the prior study with larger nodule is not notedmore superiorly measuring 5 mm and 3 mm. No thoracic lymphadenopathy. Debris noted within the mid to distal esophagus without significantdistention or wall thickening. Trachea unremarkable. Heart normal in size with three-vessel coronary calcification. Similar calcific density scarring in the distal left innominate veinextending along SVC region of the right atrial appendage is unchanged.Recommend correlation with echocardiography. Ectatic changes of the thoracic aorta to 3.8 cm, unchanged. Bony structures of the thorax are within normal limits. Visualized portion upper abdomen are unremarkable. IMPRESSION: Centrilobular nodules posterior lateral left upper lobe new 5 mm nodule.Consider increasing inflammatory/infectious process versus neoplasm.Recommend follow-up chest CT in 6 months. Unchanged 6 mm groundglass nodule superior segment of the right lowerlobe. -------- FINAL REPORT -------- Dictated By: Gopi Martin Dictated Date: 09/19/2024 13:59 ET Assigned Physician: Gopi Martin Reviewed and Electronically Signed By: Gopi Martin Signed Date: 09/19/2024 14:15 ET Workstation ID: [id number] Transcribed By: Self Edit Transcribed Date: 09/19/2024 13:59 ET Riccardo Garay MD IM CT PROCEDURES Final Result * Lipid panel with reflex to direct LDL (04/01/2024 2:11 PM EST) Cholesterol 119 0 - 200 mg/dL LAB CHEMISTRY METHOD 04/01/2024 7:11 PM [facility] Triglycerides 117 0 - 150 mg/dL LAB CHEMISTRY METHOD 04/01/2024 7:11 PM [facility] HDL 54 >=40 mg/dL LAB CHEMISTRY METHOD 04/01/2024 7:11 PM [facility] LDL Calculated 42 0 - 100 mg/dL LAB CHEMISTRY METHOD 04/01/2024 7:11 PM [facility] VLDL Cholesterol Joni 23.4 mg/dL LAB CHEMISTRY METHOD 04/01/2024 7:11 PM [facility] Non HDL Chol. (LDL+VLDL) 65 <145 mg/dL LAB CHEMISTRY METHOD 04/01/2024 7:11 PM [facility] Chol/HDL Ratio 2.2 0.0 - 4.4 LAB CHEMISTRY METHOD 04/01/2024 7:11 PM [facility] Blood Venous blood specimen / Unknown Venipuncture / Unknown 04/01/2024 2:11 PM EST 04/01/2024 2:11 PM EST us Layne Martinez MD LAB BLOOD ORDERABLES F inal Result [facility] [address] [place] [address], [place] [phone] * (ABNORMAL) Comprehensive metabolic panel (04/01/2024 2:11 PM EST) Sodium 140 133 - 145 mmol/L LAB CHEMISTRY METHOD 04/01/2024 7:22 PM [facility] Potassium 4.3 3.5 - 5.5 mmol/L LAB CHEMISTRY METHOD 04/01/2024 7:22 PM [facility] Chloride 116(H) 96 - 110 mmol/L LAB CHEMISTRY METHOD 04/01/2024 7:22 PM [facility] CO2 24 21 - 32 mmol/L LAB CHEMISTRY METHOD 04/01/2024 7:22 PM [facility] Anion Gap 0(L) 3 - 11 LAB CHEMISTRY METHOD 04/01/2024 7:22 PM [facility] Glucose 95 70 - 100 mg/dL LAB CHEMISTRY METHOD 04/01/2024 7:22 PM [facility] BUN 30(H) 5 - 25 mg/dL LAB CHEMISTRY METHOD 04/01/2024 7:22 PM [facility] Creatinine 1.27(H) 0.50 - 1.10 mg/dL LAB CHEMISTRY METHOD 04/01/2024 7:22 PM [facility] eGFR 43(L) >=60 mL/min/1. 73m2 LAB CHEMISTRY METHOD 04/01/2024 7:22 PM [facility] Comment:Calculation based on the Chronic Kidney Disease Epidemiology Collaboration (CKD-EPI) equation refit without adjustment for race. BUN/Creatinine Ratio 23.6 LAB CHEMISTRY METHOD 04/01/2024 7:22 PM [facility] Calcium 9.5 8.5 - 10.5 mg/dL LAB CHEMISTRY METHOD 04/01/2024 7:22 PM [facility] AST (SGOT) 14 10 - 42 unit/L LAB CHEMISTRY METHOD 04/01/2024 7:22 PM [facility] ALT (SGPT) 14 10 - 60 unit/L LAB CHEMISTRY METHOD 04/01/2024 7:22 PM [facility] Alkaline Phosphatase 77 42 - 121 unit/L LAB CHEMISTRY METHOD 04/01/2024 7:22 PM [facility] Total Protein 6.7 6.0 - 8.0 g/dL LAB CHEMISTRY METHOD 04/01/2024 7:22 PM [facility] Albumin 3.4 3.2 - 5.0 g/dL LAB CHEMISTRY METHOD 04/01/2024 7:22 PM [facility] Total Bilirubin 0.3 0.0 - 1.4 mg/dL LAB CHEMISTRY METHOD 04/01/2024 7:22 PM [facility] Blood Venous blood specimen / Unknown Venipuncture / Unknown 04/01/2024 2:11 PM EST 04/01/2024 2:11 PM EST us Layne Martinez MD LAB BLOOD ORDERABLES F inal Result [facility] [address] [place] [address], [place] [phone] from Last 3 Months or Most Recently Relevant to Health [place] [phone] MEDICARE [facility] Care Teams Crystallographer Relationship Specialty Start Date End Date Layne Martinez MD [address] [place] [address] [place] [id number] PCP - General 08/17/23
--- OUTSIDE RECORDS SUMMARY | 2024-09-30 14:43 | XMS_ITS | Patient Health Record ---
Author Organization [facility] Address [address] [place] [address] Care Team Providers Care Cyber Special Agent Name Role Phone CHITRA HODGSON, SUMAN Primary Care Provider Caitlyn Dyer Unavailable [phone] Allergies Allergen (clinical drug ingredient) Drug/Non Drug [...] Duration) Notes Start Date End Date Status Glucosamine Chond Cmp Advanced - 1 tablet Orally Twice a day Active Vitamin D3 1000 IU 1 ORAL twice daily; Duration: -3 10/26/2011 Active Estradiol 0.1 MG/GM 1 tablet Orally 2X A WEEK Active Vitamin B12 500MCG 1 ORAL daily; Duration: -3 12/09/2013 Active Tobramycin-dexAMETHasone 0.3-0.1 % 1 drop into affected eye Ophthalmic as needed PRN Active ProAir RespiClick 108 (90 Base) MCG/ACT 1 puff as needed Inhalation PRN Active Latanoprost 0.005 % 1 drop into affected eye in the evening Ophthalmic 3x a week Active Imodium A-D 2 MG 1 tablet as needed Orally PRN Active Meclizine HCl 25MG 1 ORAL NEEDED FOR VERTIGO; Duration: -2 PRN 12/05/2012 Active Centrum Ultra Womens - Orally Active Levothyroxine Sodium 88 MCG 1 tablet in the morning on an empty stomach Orally Once a day 12/05/2012 Active Aspirin EC 81MG 1 ORAL daily; Duration: -3 12/09/2013 Active Losartan Potassium 50 MG 1 tablet Orally Twice a day Active Tylenol Arthritis Pain as needed Active pyRIDostigmine [place] ER 180 MG 2 tablet Orally Twice a day Active Myrbetriq 50 MG 50 MG Oral Once a day; Duration: 30 days Active Ursodiol 300MG 1 ORAL three times daily; Duration: -3 10/26/2011 Active Macrobid 100 MG 1 capsule with food Orally every 12 hrs; Duration: 7 days 04/10/2022 Active Sildenafil Citrate 20 MG 1 tablet Orally Once a day Active Omeprazole 20MG 1 ORAL Once a day 10/26/2011 Active dilTIAZem HCl ER Coated Beads 180 MG Oral; Duration: 90 Active Flonase Allergy Relief Not-Taking Social History Tobacco Use: Social History Observation Description Date Details (start date - stop date) Never Smoker NA - NA Sexual History Question Answer Notes Had sex in the past 12 months (vaginal, oral, or anal)? No AUDIT-C (Standard) Question Answer Notes Did you have a drink containing alcohol in the p ast year? No Points 0 Interpretation Negative Tobacco Control (Standard) Question Answer Notes Tobacco use: Nonsmoker Section Notes: MARITAL STATUS: single CHILDREN: none OCCUPATION: retired NUTRITION: average diet EXERCISE: occasional walking SEXUAL ACTIVITY: not sexually active CONTRACEPTION: hysterectomy .CE: Smoking: Never a smoker .CE: ALCOHOL: none TEXT MESSAGING WHILE DRIVING: no SUNSCREEN: yes ILLICIT DRUGS: no SEATBEALT: yes Problems Problem Type SNOMED Code ICD Code Onset Dates Problem Status W/U Status Risk Notes Problem Postmenopausal atrophic vaginitis (83612790) Postmenopausal atrophic vaginitis (N95.2) Active confirmed Problem Urinary incontinence (844794585) Unspecified urinary incontinence (R32) Active confirmed Problem Cancer of skin of lower limb, basal cell (385610660) Basal cell carcinoma of skin of right lower limb, including hip (C44.712) Active confirmed Problem Basal cell carcinoma of skin (546063407) Basal cell carcinoma of skin, unspecified (C44.91) Active confirmed Problem Cholelithiasis without obstruction (05019771) Calculus of gallbladder without cholecystitis without obstruction (K80.20) Active confirmed Problem Functional urinary incontinence (739139256) Functional urinary incontinence (R39.81) Active confirmed Problem Hypothyroidism (49305796) Unspecified hypothyroidism (244.9) Active confirmed Major Problem Raynaud's disease (disorder) (718727671) Raynaud's syndrome (443.0) Active confirmed Diag Problem Benign essential hypertension (2438125) Essential hypertension, benign (401.1) Active confirmed Major Problem Esophageal reflux (075489841) Esophageal reflux (530.81) Active confirmed Major Problem Menopausal symptom (78076644) Symptomatic menopausal or female climacteric states (627.2) Active confirmed Major Problem Postmenopausal atrophic vaginitis (01818603) Postmenopausal atrophic vaginitis (627.3) Active confirmed Diag Problem Systemic sclerosis (79265091) Systemic sclerosis (710.1) Active confirmed Diag Problem Gynecological examination normal (279919172427877) Routine gynecological examination (V72.31) Active confirmed Major Problem Screening for malignant neoplasm of colon (537939485) Special screening for malignant neoplasms, colon (V76.51) Active confirmed Major Vital Signs Temperature 98.6 degrees Fahrenheit 08/18/2024 Blood pressure diastolic 58 mm Hg 08/18/2024 Height 60.5 in 08/18/2024 Blood pressure systolic 126 mm Hg 08/18/2024 Weight 91 lbs 08/18/2024 BMI 17.48 kg/m2 08/18/2024 Encounters Encounter Location Date Provider Diagnosis [address] [place] [address] 08/18/2024 Caitlyn Santana Encounter for gynecological examination (general) (routine) without abnormal findings Z01.419 ; Encounter for screening mammogram for malignant neoplasm of breast Z12.31 ; Other specified disorders of bone density and structure, multiple sites M85.89 and Unspecified urinary incontinence R32 Assessments Encounter Date Diagnosis (ICD Code) Assessment Notes Treatment Notes Treatment Clinical Notes Section Notes 08/18/2024 Encounter for gynecological examination (general) (routine) without abnormal findings (ICD-10 - Z01.419) NO MORE PAP TESTS. 08/18/2024 Encounter for screening mammogram for malignant neoplasm of breast (ICD-10 - Z12.31) REGULAR MAMMOGRAMS AND SBE'S WERE RECOMMENDED. 08/18/2024 Other specified disorders of bone density and structure, multiple sites (ICD-10 - M85.89) DISCUSSED OSTEOPENIA AND ITS IMPACT ON HER HEALTH. ADEQUATE CALCIUM AND VIT D. WEIGHT BEARING EXERCISES. REPEAT BMD IN 2025. 08/18/2024 Unspecified urinary incontinence (ICD-10 - R32) ASKED FOR RECORDS FROM DR PAREKH AND DR MARTINI. TRIED TO HELP THE PAT COMMUNICATE HER WISHES WITH DR MARTINI AND GAVE HER POINTERS ON WHAT TO ASK. BRING A FRIEND WITH HER DURING HER VISITS. Plan Of Treatment Pending Test Test Name Order Date MAMMOGRAM, SCREENING 11/24/2020 MAMMOGRAM, SCREENING 04/05/2022 MAMMOGRAM, SCREENING 07/06/2023 MAMMOGRAM, SCREENING 08/18/2024 BONE DENSITY 04/05/2022 BONE DENSITY 09/12/2017 BONE DENSITY 09/19/2018 MM Digital Mammo Screening 09/26/2019 MM Digital Mammo Screening 11/24/2020 MM Digital Mammo Screening 07/06/2023 MM Digital Mammo Screening 04/05/2022 MM Digital Mammo Screening 08/18/2024 Insurance Providers Payer Name Payer Address Payer Phone Subscriber Number Group Number Insured Name Patient Relationship to Insured Coverage Start Date Coverage End Date MEDICARE [address] JASBIR LUIS [id number] MCKAY JONES Self - patient is the insured [facility] [address] [place] [address] [id number] MCKAY JONES Self - patient is the insured 9 Medical (General) History Medical History History ICD [...]
--- OUTSIDE RECORDS SUMMARY | 2024-09-30 14:43 | XMS_ITS | Patient Health Record ---
[facility] Address [address] [place] [address] Care Team Providers Care Industrial Maintenance Repairer Name Role Phone Teodoro Ventura Primary Care Provider Khris Steel Unavailable [phone] Allergies Allergen (clinical drug ingredient) Drug/Non Drug [...] TABLET B Y MOUTH TWICE A DAY Oral; Duration: 90 Active Vitamin D3 Active Meclizine HCl prn Active Multivitamin centrum Active Omeprazole 20 MG Oral; Duration: 90 Active Glucosamine Active Spiriva HandiHaler N ot-Taking Imodium A-D prn Active Tobramycin prn Active Latanoprost 0.005 % Ophthalmic; Duration : 90 Active Ursodiol 300 MG TAKE 1 CAPSULE BY MOUTH THREE TIMES A DAY Oral; Duration: 90 Active Levothyroxine Sodium 88 MCG TAKE 1 TABLET BY MOUTH EVERY DAY Oral; Duration: 90 Active Vitamin B12 Active pyRIDostigmine [place] ER 180 MG Oral; Duration: 90 Active ProAir RespiClick prn Ac tive dilTIAZem HCl ER Coated Beads 180 MG TAKE 1 CAPSULE BY MOUTH EVERY DAY Oral; Duration: 90 Active Probiotic prn Active Fluticasone Propionate 50 MCG/ACT Nasal; Duration: 90 Active Social History Tobacco Use: Social [...] Status Risk Notes Problem Acquired hallux valgus (16255345) Hallux valgus (acquired), left foot (M20.12) Active confirmed Problem Acquired hallux valgus (72192573) Hallux valgus (acquired), right foot (M20.11) Active confirmed Plan Of Treatment Pending Test Test Name Order Date X ray : Foot, left 3V 09/14/2021 X ray : Foot, right 3V 09/14/2021 Insurance Providers Payer Name Payer Address Payer Phone Subscriber Number Group Number Insured Name Patient Relationship to Insured Coverage Start Date Coverage End Date Medicare National Govt Svcs Inc [address] [facility] [place] [address] [id number] Angela Zuleta Self - patient is the insured [employer]) [address] [place] [address] [id number] Angela Zuleta Self - patient is [...]
== END 2024-09-30 14:28 | disposition home or self-care (01) ==
LOC: HO.RHES 13:27
PROVIDERS: PCP Student in an Organized Health Care Education/Training Program; Visit Provider Internal Medicine Rheumatology
DX: M34.9 Systemic sclerosis, unspecified (principal); I73.00 Raynaud's syndrome without gangrene; R25.2 Cramp and spasm; R13.10 Dysphagia, unspecified
CPT/HCPCS: 99214; G2211

== ENCOUNTER 2024-09-30 13:27 | Outpatient (REF) | payer MEDICARE, OTHER, SELFPAY ==
[2024-09-30 18:50] LABS: Calcium 9.3 mg/dL (8.4-10.2); Magnesium 1.5 mg/dL (1.6-2.6); Potassium 4.2 mmol/L (3.3-5.1); Sodium 140 mmol/L (135-145)
== END 2024-09-30 13:28 | disposition home or self-care (01) ==
LOC: HO.HKASLDS 13:27
PROVIDERS: PCP Student in an Organized Health Care Education/Training Program; Visit Provider Internal Medicine Rheumatology
DX: M34.89 Other systemic sclerosis (principal); I73.00 Raynaud's syndrome without gangrene; R25.2 Cramp and spasm; R13.10 Dysphagia, unspecified; Z79.899 Other long term (current) drug therapy
CPT/HCPCS: 36415; 82310; 83735; 84100; 84132; 84295; 99212

== ENCOUNTER 2025-01-28 13:31 | Outpatient (AMB) | payer MEDICARE, OTHER, SELFPAY ==
--- OUTSIDE RECORDS SUMMARY | 2024-07-10 08:00 | XMS_ITS ---
Author Organization [facility] Address [address] [address] Care Team Providers Care Insights Manager Name Role Phone CHITRA HODGSON, SUMAN Primary Care Provider Caitlyn Dyer Unavailable [phone] REASON FOR VISIT Annual APPLICATIONS ENGINEER MANUFACTURING Physical Encounters Encounter Location Date Provider Diagnosis [facility] [address] [address] 07/10/2024 Caitlyn Santana Plan Of Treatment No Information Progress Notes * MCKAY JONESDOB:1945 (79 yo F)Acc No.[id number]:07/10/2024 PROGRESS NOTES Patient: MCKAY YO Appointment Provider: Chano Santana M.D. :1945 A ge:78 Y S ex:Female Date:07/10/2024 Address:[address] [place], [place] [address]CIRA BONILLAPaulette [place]CDON[place], , [facility] Pcp:SUMAN BUENROSTRO MD Subjective: * Chief Complaints: * 1 . Annual APPLICATIONS ENGINEER MANUFACTURING Physical. * Medical History: Objective: * Vitals: Assessment: Plan: * Treatment: * Images: Billing Information: * Visit Code: * Procedure Codes: * Electronic signature of Markus Santana MD on 01/28/2025 at 05:41 PM EST Sign off status: Pending * Appointment Provider: Chano Santana M.D. Date: 0 07/10/2024 Generated for Printi ng/Faxing/eTransmitting on: 1 03/31/2024 05:41 PM EST
[2025-01-28 13:50] VITALS: BP 120/60; PULSE 69; O2SAT 100; BMI 18.5
--- NOTE | 2025-01-28 13:50 | MHC.OFFVIS ---
Vital Signs 01/28/25 13:50 Height 5 ft 1 in Weight 98 lb 1.691 oz BMI 18.5 BP 120/60 Blood Pressure Location Rt brachial Position Sitting Pulse 69 Pulse Source Pulse Oximeter Pulse Oximetry (%) 100 Oxygen Delivery Method Room Air Intake Visit Reasons: 3 months Intake Note: Patient presents today for follow up on arthralgia. Accompanied by: Self / Same As Patient Allergies amoxicillin Allergy (Mild, Verified 01/28/25 13:51) Hives sulfamethoxazole (From Bactrim) Adverse Reaction (Intermediate, Verified 01/28/25 13:51) stomach pain trimethoprim (From Bactrim) Adverse Reaction (Intermediate, Verified 01/28/25 13:51) stomach pain nifedipine (From Procardia) Adverse Reaction (Mild, Verified 01/28/25 13:51) Headache lactose intolerant Adverse Reaction (Mild, Uncoded 03/13/24 10:07) Stomach Upset tegaderm tape Adverse Reaction (Mild, Uncoded 03/13/24 10:07) Rash HPI HPI 3 months: Details: When she took sildenafil 3 times a day she did not feel well and had to rest. She felt cold. She discovered that when she takes losartan with sildenafil this symptom occurs. She has been spacing losartan b.i.d. and sildenafil throughout the day. She is constantly having Raynaud's syndrome and feels that her hands are cold. In the morning she wakes up with cold hands. She avoids using bare hands with the Fridge a freezer. [facility] Medical History Varicose veins of both lower extremities Aortic regurgitation Aortic dilatation Diastolic dysfunction Right ventricular dilation Myasthenia gravis COPD (chronic obstructive pulmonary disease) Ocular myasthenia Lactose intolerance Osteopenia Veronica's disease Subclavian artery thrombosis DVT (deep venous thrombosis) History of colonic diverticulitis Primary biliary cirrhosis GERD (gastroesophageal reflux disease) Sclerodactyly Raynaud's phenomenon Inflammatory bowel disease Hypertension Surgical History History of cataract surgery H/O total colectomy H/O total hysterectomy H/O basal cell carcinoma excision Physical Exam Vital Signs: Last Vital Signs Pulse 69 01/28/25 13:50 BP 120/60 01/28/25 13:50 Pulse Ox 100 01/28/25 13:50 Oxygen Delivery Method Room Air 01/28/25 13:50 BMI result Body Mass Index 18.5 Const Other: General: Comfortable CVS: RRR Respiratory: clear to auscultation bilaterally. Good respiratory effort Skin: Sclerodactyly present. Skin is also tight on dorsal feet bilaterally. No discoloration of fingertips. No digital ulcerations. MSK: [place] nodes present. No tender joints. No synovitis. Normal range of motion of upper extremities Assessment & Plan Assessment & Plan (1) Systemic sclerosis with limited cutaneous involvement: Comment: Cutaneous disease is controlled without DMARD therapy. Raynaud's syndrome is not controlled (see below). She is tolerating sildenafil. She has experienced intermittent dysphagia to solids relieved with drinking warm water. Rheumatology history: Positive anticentromere antibody, URBAN, sclerodactyly, Raynaud's phenomena, possible history of strictures requiring dilatation from GI (unclear if esophageal dysmotility played a role in the past). Code(s): M34.9 - Systemic sclerosis, unspecified Category: Medical Plan: Barium swallow ordered last visit. He is scheduled for this month. Return to clinic in 3 months (2) Raynaud's phenomenon: Comment: Uncontrolled. Sildenafil and losartan is causing her to feel unwell with cold sensation. I am concerned that her blood pressure may be lowered when she takes them together. Blood pressure is normotensive. Rheumatology history: Nifedipine caused side effect of ankle edema. Failed diltiazem. Sildenafil 06/2024- Code(s): I73.00 - Raynaud's syndrome without gangrene Category: Medical Qualifiers: Raynaud?s-associated gangrene presence: without gangrene Qualified Code(s): I73.00 - Raynaud's syndrome without gangrene Plan: Follow up with PCP with consideration to lower dose of losartan Continue sildenafil 20 mg b.i.d. we can consider increasing to t.i.d., when losartan dose is decreased. I recommend that she take each dose 4-6 hours apart during the day when her symptoms are most active. Continue wearing gloves when exposed to cold including grocery shopping Return to clinic in 3 months (3) Dysphagia: Code(s): R13.10 - Dysphagia, unspecified Category: Medical Plan: Barium swallow ordered last visit. It is scheduled for this month. Return to clinic in 3 months Coding Level of Care Code Est Pt Level 3 (57069) Add On Problem Visit Only Diagnoses Systemic sclerosis with limited cutaneous involvement M34.9 Raynaud's phenomenon without gangrene I73.00 Raynaud?s-associated gangrene presence: without gangrene Dysphagia R13.10
--- OUTSIDE RECORDS SUMMARY | 2025-01-28 17:40 | XMS_ITS | Patient Health Record ---
[facility] Address [address] [place] [address] Care Team Providers Care Product Control And Logistics Analyst Name Role Phone Teodoro Ventura Primary Care Provider Khris Steel Unavailable [phone] Allergies Allergen (clinical drug ingredient) Drug/Non Drug [...] Duration: 90 Active Vitamin B12 Active pyRIDostigmine [place] ER 180 MG Oral; Duration: 90 Active [...] Status Risk Notes Problem Acquired hallux valgus (12676159) Hallux valgus (acquired), left foot (M20.12) Active confirmed Problem Acquired hallux valgus (69097470) Hallux valgus (acquired), right foot (M20.11) Active confirmed Plan Of Treatment Pending Test Test Name Order Date X ray : Foot, left 3V 09/14/2021 X ray : Foot, right 3V 09/14/2021 Insurance Providers Payer Name Payer Address Payer Phone Subscriber Number Group Number Insured Name Patient Relationship to Insured Coverage Start Date Coverage End Date Medicare National Govt Svcs Inc [address] [place] [address] [id number] Angela Zuleta Self - patient is the insured [employer]) [address] [place] [address] [id number] Angela Zuleta Self - patient is [...]
--- OUTSIDE RECORDS SUMMARY | 2025-01-28 17:40 | XMS_ITS | Clinical Summary ---
Author Organization [facility] [address] [facility] lding Address [address] [place] [address] Phone Care Team Providers Care Curtain Roller Assembler Name Role Phone Layne Martinez MD Primary Care Provider Allergies Active Allergy Reactions Criticality Noted Date Comments Adalat Headache 06/12/2013 Amoxicillin Itching,Rash Low 06/12/2013 Lactose Nausea And Vomiting Low 06/12/2013 Other Reaction(s): OTHER Lactose intolerant Other Itching 08/22/2023 Tegaderm Ag Mesh 2 x2 [Wound Dressings]Rash/Monrovia titis Sulfamethoxazole-Trime thoprim 08/26/2021 Other Reaction(s): Flushing, feeling of warmth Medications cyanocobalamin (VITAMIN B-12) 1,000 mcg tablet Take 1 tablet (1,000 mcg total) by mouth 1 (one) time each day. Active mirabegron (MYRBETRIQ) 25 mg 24 hr tablet Take by mouth. Active estradioL (ESTRACE) 0.01 % (0.1 mg/gram) vaginal cream Place 1 g vaginally at bedtime. Active latanoprost (XALATAN) 0.005 % ophthalmic solution [...] time each day. Active UNABLE TO FIND Glucosamine-Chondr oit-Vit C-Mn (GLUCOSAMINE CHONDR 1500 COMPLX OR), Take by mouth 2 times daily. Active MULTIVITAMIN ORAL Take by mouth 1 (one) time each day. Active sildenafil (REVATIO) 20 mg tablet Take 1 tablet (20 mg total) by mouth 2 (two) times a day. Active ursodioL (ACTIGALL) 300 mg capsuleIndicatio ns:Abnormal liver function test TAKE 3 CAPSULES BY MOUTH EVERY DAY 270 capsule 3 10/15/19 25 Active losartan (COZAAR) 50 mg tabletIndication s:Essential (primary) hypertension TAKE 1 TABLET BY MOUTH TWICE A DAY 180 tablet 10/16/19 25 Active omeprazole (PriLOSEC) [address] capsule Take 1 capsule (20 mg total) by mouth 1 (one) time each day. 90 capsule 11/26/19 25 Active levothyroxine (SYNTHROID, LEVOTHROID) 88 mcg tablet Take 1 tablet (88 mcg total) by mouth 1 (one) time each day. 90 tablet 1 12/03/19 25 Active magnesium oxide 400 mg magnesium capsule Take 1 capsule by mouth 2 (two) times a day. Per bench carpenter Active Active Problems Problem Noted Date Diagnosed [...] deficiency 06/20/2013 Vitamin D deficiency disease 06/20/2013 Cholelithiasis 06/12/2013 Overview (01/16/2024): Seen on cat [...] on Chest CT 12/2012, sees Dr Hernandez Resolved Problems Problem Noted Date Diagnosed Date Resolved Date Alcoholism in remission 06/12/201311/13 Overview (01/16/2024): Remission since 1983 Encounters Date Type Department Care Team Description 12/02/2024 2:30 PM EDT Office Visit Adult Medicine [facility] [address] [place] [phone] Layne Martinez MD Primary hypertension (Primary Dx); Hypothyroidism, unspecified type; Myasthenia gravis (CMS/HCC V24, CMS/HCC V28); OAB (overactive bladder); Scleroderma (CMS/HCC V24, CMS/HCC V28); Stage 3b chronic kidney disease (CMS/HCC V24, CMS/HCC V28); Primary biliary cirrhosis (CMS/HCC V24, CMS/HCC V28); Encounter for immunization 11/19/2024 1:00 PM EDT Ancillary Procedure Pulmonology - [place] [address] [place] [address] Scleroderma (CMS/HCC V24, CMS/HCC V28); Pulmonary nodule from Last 3 Months Immunizations Immunization Administration Dates Next Due Influenza Quadravalent, 0.5m l (Fluad) 65yo and older 11/23/2021,11/15/2019 Influenza Whole 11/26/2007,12/14/2005,11/29/2004 Influenza trivalent, 0.5mL ( Fluad) 65yo and older 10/23/2023,11/02/2022,11/16/2020,11/14,11/19/2018,11/01/2017,11/06/2016 ,11/05/2014 Influenza trivalent, 0.5mL ( Fluzone High-dose) 65yo and older 12/02/2024,10/23/2023,11/02/2022,11/16,11/19/2018,11/01/2017,11/06/2016 ,11/05/2014 Influenza trivalent, 0.5mL, preservative free (Fluarix; [...] COMMENT: varicose vein UPPER GASTROINTESTINAL ENDOSCOPY PROCEDURE: MD UPPER GI ENDOSCOPY PERFORMED; COMMENT: historic , multiple with dilitation, neg barretts APPENDECTOMY PROCEDURE: MD APPENDECTOMY HYSTERECTOMY PROCEDURE: HISTORICAL HYSTERECTOMY COLONOSCOPY PROCEDURE: [...] ed Within the last 3 months, ho w many times did you visit the emergency [...] your loved ones. For example, child care teacher or elderly care for an older adult? [...] Date Recorded What is your living situation? Unrecognized valu e 07/30/2024 Comments No Sex and Gender Information Value Date Recorded Sex Assigned at Not on file Legal Sex Female 6:31 AM EST Gender Identity Not on file Sexual Orientation Not on file Last Filed Vital Signs Vital Sign Reading Time Taken Comments Blood Pressure 134/79 12/02/2024 2:20 PM EDT Pulse 69 12/02/2024 2:20 PM EDT Temperature 36.2 C (97.1 F) 12/02/2024 2:20 PM EDT Respiratory Rate 16 12/02/2024 2:20 PM EDT Oxygen Saturation 100% 08/12/2024 2:34 PM EDT Inhaled Oxygen Concentration - - Weight 43.5 kg (96 lb) 12/02/2024 2:20 PM EDT Height 161 cm (5' 3.39 ) 12/02/2024 2:20 PM EDT Body Mass Index 16.8 12/02/2024 2:20 PM EDT Plan of Treatment Upcoming Encounters Date Type Department Care Team (Late st Contact Info) Description 02/24/2025 2:30 PM EST Office Visit Pulmonology - [address] [place] [phone] Riccardo Garay MD [address] [place] [address] 04/06/2025 2:30 PM EST Office Visit Adult Medicine [address] [phone] Abdullahi Higgins PA [address] [place] [address] 08/03/2025 2:00 PM EDT Office Visit Adult Medicine [address] [phone] Layne Martinez MD [address] [place], [place] Health Maintenance Due Date Last Done Comments Hepatitis A Vaccines (1 of 2 - Risk 2-dose series) 11/11/1964 Zoster Vaccines (1 of 2) 11/11/1962 Hepatitis B Vaccines (1 of 3 - Risk 3-dose series) 2003 RSV Immunization Adult Patients (1 - 1-dose 75+ series) 11/11/2018 Osteoporosis Screening (Bone Density Screening) 01/21/2022 Hypertension/CHF/CAD Annual BMP Blood Test 04/01/2025 04/01/2024, 11/13/2023, 11/13/2023 COVID-19 Vaccine (10 - Moderna risk season) 2025 11/15/2024, 12/28/2023, 11/28/2022, Additional history exists Falls Risk Assessment 07/30/2025 07/30/2024, 025 Medicare Annual Wellness Visit 07/30/2025 07/30/2024 Social Influencers of Health Screening 07/30/2025 07/30/2024 DTaP,Tdap,and Td Vaccines (6 - Td or Tdap) 12/04/2026 12/04/2016, 08/18/2010, 08/18/2010, Additional history exists Cholesterol Screening (Lipid Panel) 04/01/2029 04/01/2024, 05/03/2023 Depression Screening Completed 07/30/2024 Pneumococcal Vaccine: 50+ Years Completed 07/30/2024, 07/01/2014, 08/10/2010 Influenza Vaccine Completed 12/02/2024, , 10/23/2023, Additional history exists HIB Vaccines Aged Out [...] Procedure Name Priority Date/Time Associated Diagnosis Comments PULMONARY FUNCTION TESTING Routine 11/19/2024 1:18 PM EDT Scleroderma (CMS/HCC V24, CMS/HCC V28) Pulmonary nodule COMPREHENSIVE METABOLIC PANEL Routine 04/01/2024 [...] Recently Relevant to Health Maintenance Results * Pulmonary function testing: Carbon Monoxide Diffusing Capacity, Spirometry with Bronchodilator, Vital Capacity Test, Flow Volume Loop (11/19/2024 1:18 PM EDT) Impressions Olegario Acuña MD - 11/19/2024 1:18 PM EDT Pulmonary function test interpretation. Spirometry done today reveals FEV1 of 1.78 which is 107% of the predicted value, FVC is 2.72 which is 120% of the predicted value, FEV1 to FVC ratio is 88% of the predicted value, there is no bronchodilator response. Flow-volume is consistent with normal pattern. Static lung volumes are within normal limits. Diffusion lung capacity is moderately reduced after correction for alveolar volume. This study is consistent with normal spirometry and lung volume there is isolated reduction in diffusion lung capacity for which clinical correlation is advised. us Riccardo Garay MD PFT ORDERABLES Final Result * Lipid panel with reflex to direct LDL (04/01/2024 2:11 PM EST) Cholesterol 119 0 - 200 mg/dL LAB CHEMISTRY METHOD 04/01/2024 7:11 PM EST [facility] Triglycerides 117 0 - 150 mg/dL LAB CHEMISTRY METHOD 04/01/2024 7:11 PM [facility] HDL 54 >=40 mg/dL LAB CHEMISTRY METHOD 04/01/2024 7:11 PM [facility] LDL Calculated 42 0 - 100 mg/dL LAB CHEMISTRY METHOD 04/01/2024 7:11 PM [facility] VLDL Cholesterol Joni 23.4 mg/dL LAB CHEMISTRY METHOD 04/01/2024 7:11 PM [facility] Non HDL Chol. (LDL+VLDL) 65 <145 mg/dL LAB CHEMISTRY METHOD 04/01/2024 7:11 PM [facility] Chol/HDL Ratio 2.2 0.0 - 4.4 LAB CHEMISTRY METHOD 04/01/2024 7:11 PM [facility] Blood Venous blood specimen / Unknown Venipuncture / Unknown 04/01/2024 2:11 PM EST 04/01/2024 2:11 PM EST us Layne Martinez MD LAB BLOOD ORDERABLES F inal Result [facility] [address] [place] [address], * (ABNORMAL) Comprehensive metabolic panel (04/01/2024 2:11 PM EST) Sodium 140 133 - 145 mmol/L LAB CHEMISTRY METHOD 04/01/2024 7:22 PM [facility] Potassium 4.3 3.5 - 5.5 mmol/L LAB CHEMISTRY METHOD 04/01/2024 7:22 PM [facility] Chloride 116(H) 96 - 110 mmol/L LAB CHEMISTRY METHOD 04/01/2024 7:22 PM [facility] CO2 24 21 - 32 mmol/L LAB CHEMISTRY METHOD 04/01/2024 7:22 PM [facility] Anion Gap 0(L) 3 - 11 LAB CHEMISTRY METHOD 04/01/2024 7:22 PM [facility] Glucose 95 70 - 100 mg/dL LAB CHEMISTRY METHOD 04/01/2024 7:22 PM [facility] BUN 30(H) 5 - 25 mg/dL LAB CHEMISTRY METHOD 04/01/2024 7:22 PM [facility] Creatinine 1.27(H) 0.50 - 1.10 mg/dL LAB CHEMISTRY METHOD 04/01/2024 7:22 PM [facility] eGFR 43(L) >=60 mL/min/1. 73m2 LAB CHEMISTRY METHOD 04/01/2024 7:22 PM [facility] Comment:Calculation based on the Chronic Kidney Disease Epidemiology Collaboration (CKD-EPI) equation refit without adjustment for race. BUN/Creatinine Ratio 23.6 LAB CHEMISTRY METHOD 04/01/2024 7:22 PM [facility] Calcium 9.5 8.5 - 10.5 mg/dL LAB CHEMISTRY METHOD 04/01/2024 7:22 PM [facility] AST (SGOT) 14 10 - 42 unit/L LAB CHEMISTRY METHOD 04/01/2024 7:22 PM [facility] ALT (SGPT) 14 10 - 60 unit/L LAB CHEMISTRY METHOD 04/01/2024 7:22 PM [facility] Alkaline Phosphatase 77 42 - 121 unit/L LAB CHEMISTRY METHOD 04/01/2024 7:22 PM [facility] Total Protein 6.7 6.0 - 8.0 g/dL LAB CHEMISTRY METHOD 04/01/2024 7:22 PM [facility] Albumin 3.4 3.2 - 5.0 g/dL LAB CHEMISTRY METHOD 04/01/2024 7:22 PM [facility] Total Bilirubin 0.3 0.0 - 1.4 mg/dL LAB CHEMISTRY METHOD 04/01/2024 7:22 PM EST [facility] Blood Venous blood specimen / Unknown Venipuncture / Unknown 04/01/2024 2:11 PM EST 04/01/2024 2:11 PM EST us Layne Martinez MD LAB BLOOD ORDERABLES F inal Result [facility] [address] [place] [address], [place] [phone] from Last 3 Months or Most Recently Relevant to Health Maintenance [place] [id number] MEDICARE [facility] Care Teams Curtain Roller Assembler Relationship Specialty Start Date End Date Layne Martinez MD [address] [place] [address] [place] [id number] PCP - General 08/17/23
--- OUTSIDE RECORDS SUMMARY | 2025-01-28 17:41 | XMS_ITS | Clinical Summary ---
Author Organization [facility] Address [address] [place] [address] Care Team Providers Care Cafeteria Aide Name Role Phone Layne Martinez MD Primary Care Provider Dora vailable Social History Tobacco Use Types Packs/Day Years Used Date Smoking Tobacco: Never Assessed Comments Unknown Sex and Gender Information Value Date Recorded Sex Assigned at Not on file Legal Sex Female 12:08 PM EST Gender Identity Not on file Sexual Orientation Not on file Plan of Treatment Upcoming Encounters Date Type Department Care Team ([facility] st Contact Info) Description 03/11/2025 1:00 PM EST Consult [facility] [address] [phone] Paulette Quintana MD [address] [place] [id number] Health Maintenance Due Date Last Done Comments Advance Care Planning 1945 DTaP/Tdap/Td Vaccines (1 - Tdap) 11/11/1962 Pneumococcal Vaccines 50+ (1 of 1 - PCV) 11/11/1993 Zoster (Shingles) Vaccine (1 of 2) 11/11/1993 DXA Bone Density (Females,Ages 65 and older) 11/11/2008 RSV Vaccine 50 years and older and Patients (1 - 1-dose 75+ series) 11/11/2018 COVID-19 Vaccine ( season) 2024 08/12/2021, 01/26/2021, 01/25/2021 Influenza Vaccine Completed 12/02/2024, , 10/23/2023, Additional history exists Hepatitis B Vaccines Aged Out No long er eligible based on patient's age to complete this topic Insurance MEDICARE PART A & B [facility] MEDICARE Care Teams Cafeteria Aide Relationship Specialty Start Date End Date Layne Martinez MD PCP - General Family Medicine 01/26/25
--- OUTSIDE RECORDS SUMMARY | 2025-01-28 17:41 | XMS_ITS | Patient Health Record ---
Author Organization [facility] Address [address] [place] [address] Care Team Providers Care Dean Of Chapel Name Role Phone CHITRA HODGSON, SUMAN Primary Care Provider Caitlyn Dyer Unavailable [phone] Allergies Allergen (clinical drug ingredient) Drug/Non Drug [...] Tylenol Arthritis Pain as needed Active pyRIDostigmine [place] ER 180 MG 2 tablet Orally Twice [...] Status Risk Notes Problem Postmenopausal atrophic vaginitis (37977451) Postmenopausal atrophic vaginitis (N95.2) Active confirmed Problem Urinary incontinence (144967555) Unspecified urinary incontinence (R32) Active confirmed Problem Cancer of skin of lower limb, basal cell (477532116) Basal cell carcinoma of skin of right lower limb, including hip (C44.712) Active confirmed Problem Basal cell carcinoma of skin (495651507) Basal cell carcinoma of skin, unspecified (C44.91) Active confirmed Problem Cholelithiasis without obstruction (63989480) Calculus of gallbladder without cholecystitis without obstruction (K80.20) Active confirmed Problem Functional urinary incontinence (331074232) Functional urinary incontinence (R39.81) Active confirmed Problem Hypothyroidism (26965242) Unspecified hypothyroidism (244.9) Active confirmed Major Problem Raynaud's disease (disorder) (849386206) Raynaud's syndrome (443.0) Active confirmed Diag Problem Benign essential hypertension (7651520) Essential hypertension, benign (401.1) Active confirmed Major Problem Esophageal reflux (721149024) Esophageal reflux (530.81) Active confirmed Major Problem Menopausal symptom (43152540) Symptomatic menopausal or female climacteric states (627.2) Active confirmed Major Problem Postmenopausal atrophic vaginitis (65743799) Postmenopausal atrophic vaginitis (627.3) Active confirmed Diag Problem Systemic sclerosis (95241976) Systemic sclerosis (710.1) Active confirmed Diag Problem Gynecological examination normal (494561860976653) Routine gynecological examination (V72.31) Active confirmed Major Problem Screening for malignant neoplasm of colon (000485399) Special screening for malignant neoplasms, colon (V76.51) Active confirmed Major Vital Signs Temperature 98.6 degrees Fahrenheit 08/18/2024 Blood pressure diastolic 58 mm Hg 08/18/2024 Height 60.5 in 08/18/2024 Blood pressure systolic 126 mm Hg 08/18/2024 Weight 91 lbs 08/18/2024 BMI 17.48 kg/m2 08/18/2024 Encounters Encounter Location Date Provider Diagnosis [address] [place] [address] 08/18/2024 Caitlyn Santana Encounter for gynecological examination [...] Date MEDICARE [address] JASBIR LUIS [id number] MCKAY JONES Self - patient is the insured [facility] [address] [place] [address] [id number] MCKAY JONES Self - patient is [...]
== END 2025-01-28 14:30 | disposition home or self-care (01) ==
LOC: HO.RHES 13:31
PROVIDERS: PCP Student in an Organized Health Care Education/Training Program; Visit Provider Internal Medicine Rheumatology
DX: M34.9 Systemic sclerosis, unspecified (principal); I73.00 Raynaud's syndrome without gangrene; R13.10 Dysphagia, unspecified
CPT/HCPCS: 99213; G2211

== ENCOUNTER → 2025-01-28 13:31 | Outpatient (BNVA) | payer MEDICARE, OTHER, SELFPAY | PROVIDERS: PCP Student in an Organized Health Care Education/Training Program; Visit Provider Internal Medicine Rheumatology | DX: I73.00 Raynaud's syndrome without gangrene (principal); M34.9 Systemic sclerosis, unspecified; R13.10 Dysphagia, unspecified | CPT/HCPCS: 99212 ==